=== PATIENT | female | born 1945 | race Caucasian/White ===

== ENCOUNTER → 2016-05-18 | Outpatient (CLI) | payer OTHER ==
[~2016-05-18] MED LIST: AMLO5TAB2 PO; BUDE3CAP6 PO; DULO30CA2 PO; EST0625T PO; LEV100T PO; LOP2C PO; NITR-48 PO; POTA20TA53 PO; Pantoprazole Sodium Sesquihydr PO
[2016-05-18 10:12] LABS: Basophils # (auto) 0 uL; Basophils % (auto) 0.4 % (0.0-2.0); Eosinophils # (auto) 0.3 uL; Eosinophils % (auto) 3.1 % (0.0-7.0); Hematocrit 45.6 % (36.0-46.0); Hemoglobin 14.2 g/dL (12.2-16.2); Lymphocytes # (auto) 2.7 uL; Mean Corpuscular Hemoglobin 29.2 pg (28.0-32.0); Mean Corpuscular Hgb Conc. 31.2 g/dL (32.0-36.0); Mean Corpuscular Volume 93.7 fL (80.0-100.0); Mean Platelet Volume 6.6 fL (7.4-10.4); Monocytes # (auto) 0.6 uL; Monocytes % (auto) 6.4 % (0.0-12.0); Neutrophils % (auto) 62.1 % (37.0-80.0); Platelet Count (auto) 671 10^3/uL (140-450); Red Cell Distribution Width 15.4 % (11.6-16.0); White Blood Cell 9.6 10^3/uL (4.4-10.8)
[2016-05-18 10:19] LABS: Urine Bilirubin Negative (Negative); Urine Color Yellow (Yellow); Urine Glucose Normal (Normal); Urine Ketone Negative (Negative); Urine Mucus FEW (None Seen); Urine RBC 8 /hpf (0 - 4); Urine Squamous Epithelial Cell FEW /hpf (<5); Urine Urobilinogen Normal (Negative)
[2016-05-18 10:25] LABS: Urine Blood 1+ /uL (Negative); Urine Nitrite POSITIVE (Negative)
[2016-05-18 10:29] LABS: Albumin 3.4 g/dL (3.4-5.0); BUN/Creatinine Ratio 15.8; Bilirubin, Total 0.4 mg/dL (0.2-1.0); Calcium 8.9 mg/dL (8.5-10.1); Potassium 3.3 mmol/L (3.5-5.1); Total Protein 6.9 g/dL (6.4-8.2)
== END | disposition home or self-care (01) ==
LOC: LAB 09:21
PROVIDERS: ATTEND Internal Medicine
DX: F33.9 Major depressive disorder, recurrent, unspecified (principal); I10 Essential (primary) hypertension; M15.8 Other polyosteoarthritis; G89.29 Other chronic pain
CPT/HCPCS: 36415; 80053; 80061; 81001; 82306; 83036; 84443; 85025

== ENCOUNTER → 2016-12-06 | Outpatient (CLI) | payer OTHER ==
[2016-12-06 11:33] LABS: Basophils # (auto) 0.2 uL; Basophils % (auto) 1.8 % (0.0-2.0); CONDITION Y; DEFINITIVE SEE PRINTOUT; Eosinophils # (auto) 0.3 uL; Eosinophils % (auto) 2.8 % (0.0-7.0); Hematocrit 44.7 % (36.0-46.0); Lymphocytes # (auto) 3.2 uL; Lymphocytes % (auto) 29.9 % (10.0-50.0); Mean Corpuscular Hemoglobin 31.1 pg (28.0-32.0); Mean Corpuscular Hgb Conc. 33.5 g/dL (32.0-36.0); Mean Corpuscular Volume 92.8 fL (80.0-100.0); Mean Platelet Volume 6.6 fL (7.4-10.4); Monocytes # (auto) 0.8 uL; Monocytes % (auto) 7.3 % (0.0-12.0); Neutrophils # (auto) 6.2 uL; Neutrophils % (auto) 58.2 % (37.0-80.0); Red Cell Distribution Width 15.7 % (11.6-16.0); White Blood Cell 10.7 10^3/uL (4.4-10.8)
[2016-12-06 11:43] LABS: BUN/Creatinine Ratio 12.5; Calcium 9.2 mg/dL (8.5-10.1); Potassium 3.4 mmol/L (3.5-5.1)
[2016-12-06 13:35] LABS: Platelet Count (auto) 815 10^3/uL (140-450)
== END | disposition home or self-care (01) ==
LOC: LAB 11:00
PROVIDERS: ATTEND Internal Medicine
DX: I10 Essential (primary) hypertension (principal); N39.0 Urinary tract infection, site not specified
CPT/HCPCS: 36415; 80048; 82607; 85025

== ENCOUNTER → 2017-06-20 | Outpatient (CLI) | payer OTHER ==
[2017-06-20 09:47] LABS: Basophils # (auto) 0.1 uL; Basophils % (auto) 1.3 % (0.0-2.0); Eosinophils # (auto) 0.4 uL; Eosinophils % (auto) 4.4 % (0.0-7.0); Hematocrit 44.9 % (36.0-46.0); Hemoglobin 14.8 g/dL (12.2-16.2); Lymphocytes # (auto) 2.3 uL; Lymphocytes % (auto) 25.1 % (10.0-50.0); Mean Corpuscular Hemoglobin 29.5 pg (28.0-32.0); Mean Corpuscular Hgb Conc. 32.9 g/dL (32.0-36.0); Mean Corpuscular Volume 89.8 fL (80.0-100.0); Monocytes # (auto) 0.6 uL; Monocytes % (auto) 6.5 % (0.0-12.0); Neutrophils # (auto) 5.8 uL; Neutrophils % (auto) 62.7 % (37.0-80.0); Red Cell Distribution Width 14.7 % (11.8-14.3); White Blood Cell 9.2 10^3/uL (4.4-10.8)
[2017-06-20 10:04] LABS: Platelet Count (auto) 793 10^3/uL (140-450)
[2017-06-20 10:08] LABS: Albumin 3.3 g/dL (3.4-5.0); BUN/Creatinine Ratio 14.5; Bilirubin, Total 0.3 mg/dL (0.2-1.0); Calcium 8.6 mg/dL (8.5-10.1); Potassium 3.4 mmol/L (3.5-5.1); Total Protein 7.1 g/dL (6.4-8.2)
== END | disposition home or self-care (01) ==
LOC: LAB 09:32
PROVIDERS: ATTEND Physician Assistant
DX: G47.00 Insomnia, unspecified (principal); E03.9 Hypothyroidism, unspecified; D47.3 Essential (hemorrhagic) thrombocythemia; K52.89 Other specified noninfective gastroenteritis and colitis; E53.8 Deficiency of other specified B group vitamins; I70.0 Atherosclerosis of aorta; Z86.39 Personal history of other endocrine, nutritional and metabolic disease
CPT/HCPCS: 36415; 80053; 80061; 84443; 85025

== ENCOUNTER → 2017-08-29 | Outpatient (CLI) | payer OTHER ==
[2017-08-29 08:48] LABS: Basophils # (auto) 0.1 uL; Hemoglobin 14.9 g/dL (12.2-16.2); Lymphocytes # (auto) 2.9 uL; White Blood Cell 10.5 10^3/uL (4.4-10.8)
[2017-08-29 08:49] LABS: Basophils % (auto) 1.3 % (0.0-2.0); Eosinophils # (auto) 1.4 uL; Eosinophils % (auto) 13.4 % (0.0-7.0); Hematocrit 44.6 % (36.0-46.0); Lymphocytes % (auto) 27.2 % (10.0-50.0); Mean Corpuscular Hemoglobin 29.9 pg (28.0-32.0); Mean Corpuscular Hgb Conc. 33.4 g/dL (32.0-36.0); Mean Corpuscular Volume 89.5 fL (80.0-100.0); Monocytes % (auto) 9.2 % (0.0-12.0); Neutrophils # (auto) 5.1 uL; Neutrophils % (auto) 48.9 % (37.0-80.0); Nucleated Red Blood Cells % 0.1 %; Platelet Count (auto) 715 10^3/uL (140-450); Red Blood Cells 4.98 10^6/uL (4.0-5.20); Red Cell Distribution Width 15.7 % (11.8-14.3)
[2017-08-29 09:07] LABS: Albumin 3.1 g/dL (3.4-5.0); Calcium 8.6 mg/dL (8.5-10.1); Potassium 3.5 mmol/L (3.5-5.1)
[2017-08-29 09:09] LABS: Urine Bacteria NONE SEEN /hpf (None Seen); Urine Blood TRACE /uL (Negative); Urine Mucus FEW (None Seen); Urine Specific Gravity 1.013 (1.001-1.035); Urine WBC 2 /hpf (0 - 5)
[2017-08-29 09:10] LABS: Bilirubin, Total 0.3 mg/dL (0.2-1.0); Total Protein 7.2 g/dL (6.4-8.2)
== END | disposition home or self-care (01) ==
LOC: LAB 08:33
PROVIDERS: ATTEND Physician Assistant
DX: Z01.818 Encounter for other preprocedural examination (principal); E03.9 Hypothyroidism, unspecified; I10 Essential (primary) hypertension; J44.9 Chronic obstructive pulmonary disease, unspecified
CPT/HCPCS: 36415; 80053; 81001; 85025

== ENCOUNTER 2018-02-12 08:16 | Day surgery (SDC) | payer OTHER ==
[2018-02-08 10:10] LABS: Basophils # (auto) 0.1 uL; Eosinophils # (auto) 0.3 uL; Hemoglobin 13.9 g/dL (12.2-16.2); Monocytes # (auto) 0.7 uL
[2018-02-08 10:13] LABS: Basophils % (auto) 0.8 % (0.0-2.0); Hematocrit 42.3 % (36.0-46.0); Lymphocytes # (auto) 2.7 uL; Lymphocytes % (auto) 30.4 % (10.0-50.0); Mean Corpuscular Hemoglobin 29.7 pg (28.0-32.0); Mean Corpuscular Hgb Conc. 32.9 g/dL (32.0-36.0); Mean Corpuscular Volume 90.5 fL (80.0-100.0); Monocytes % (auto) 8.2 % (0.0-12.0); Neutrophils # (auto) 5.1 uL; Neutrophils % (auto) 57.6 % (37.0-80.0); Red Blood Cells 4.68 10^6/uL (4.0-5.20); Red Cell Distribution Width 15.7 % (11.8-14.3); White Blood Cell 8.9 10^3/uL (4.4-10.8)
[2018-02-08 10:33] LABS: INR 0.97 (0.9-1.15); Partial Thromboplastin Time 28.7 sec (23.78-33.04); Prothrombin Time 10.4 sec (9.27-12.13)
[2018-02-08 10:50] LABS: Platelet Count (auto) 782 10^3/uL (140-450)
[~2018-02-12] VITALS: Ht 154.9 cm; Wt 45.4 kg
[~2018-02-12 08:16] MED LIST changes: +ALPR0.5T PO; +AMLO5TAB13 PO; -AMLO5TAB2 PO; +ASPI81TA27 PO; -BUDE3CAP6 PO; -LOP2C PO; -NITR-48 PO; +PRE5T PO; -Pantoprazole Sodium Sesquihydr PO
[2018-02-12] MEDS ORDERED: SODIUM CHLORIDE LOCK 10 ML ONE (09:01)
[2018-02-12] MEDS ORDERED: LIDOCAINE VISCOUS 2% 15ML UD ONE (09:01)
[2018-02-12] MEDS: MIDAZOLAM HCL 5 MG/ML-1ML VIAL ONE ×3 (09:27→09:33)
[2018-02-12] MEDS: fentaNYL CITRATE 100 MCG/2 ML VL ONE ×2 (09:27→09:30)
[2018-02-12 10:12] VITALS: BP 120/76
[2018-02-12] MEDS ORDERED: diphenhdrAMINE 50mg/ml (500mg/10ml VIAL) ONE (11:33)
== END 2018-02-12 10:22 | disposition home or self-care (01) ==
LOC: GI 08:16
PROVIDERS: ATTEND Internal Medicine Gastroenterology
DX: K29.50 Unspecified chronic gastritis without bleeding (principal); R13.10 Dysphagia, unspecified; F41.9 Anxiety disorder, unspecified; F32.9 Major depressive disorder, single episode, unspecified; H26.9 Unspecified cataract; F17.210 Nicotine dependence, cigarettes, uncomplicated; Z98.890 Other specified postprocedural states; Z79.899 Other long term (current) drug therapy; Z79.82 Long term (current) use of aspirin; Z84.89 Family history of other specified conditions
CPT/HCPCS: 36415; 43239; 43248; 85025; 85610; 85730; A6257; J1200; J2250; J3010; J7030

== ENCOUNTER → 2018-04-24 | Outpatient (CLI) | payer OTHER ==
[2018-04-24 11:34] LABS: Basophils # (auto) 0.1 uL; Eosinophils # (auto) 0.2 uL; Hemoglobin 14.8 g/dL (12.2-16.2); Lymphocytes # (auto) 2.4 uL; Monocytes # (auto) 0.6 uL; Neutrophils # (auto) 4.9 uL
[2018-04-24 11:36] LABS: Basophils % (auto) 1.2 % (0.0-2.0); Eosinophils % (auto) 2.3 % (0.0-7.0); Hematocrit 44.2 % (36.0-46.0); Lymphocytes % (auto) 29.1 % (10.0-50.0); Mean Corpuscular Hemoglobin 30.6 pg (28.0-32.0); Mean Corpuscular Hgb Conc. 33.6 g/dL (32.0-36.0); Neutrophils % (auto) 60.4 % (37.0-80.0); Red Blood Cells 4.85 10^6/uL (4.0-5.20); Red Cell Distribution Width 16.4 % (11.8-14.3); White Blood Cell 8.1 10^3/uL (4.4-10.8)
[2018-04-24 12:39] LABS: Platelet Count (auto) 675 10^3/uL (140-450)
[2018-04-24 13:49] LABS: Alanine Aminotransferase 13 U/L (13-56); Albumin 3.3 g/dL (3.4-5.0); Anion Gap 8 (5-15); Aspartate Aminotransferase 11 U/L (15-37); BUN/Creatinine Ratio 18.8; Blood Urea Nitrogen 12 mg/dL (7-18); Calcium 9.1 mg/dL (8.5-10.1); Carbon Dioxide 26 mmol/L (21-32); Chloride 104 mmol/L (98-107); GFR African American > 60 mL/min; GFR Non-African American > 60 mL/min; Glucose 93 mg/dL (74-106); Potassium 3.6 mmol/L (3.5-5.1); Sodium 138 mmol/L (136-145)
[2018-04-24 13:53] LABS: Alkaline Phosphatase 51 U/L (45-117); Bilirubin, Total 0.4 mg/dL (0.2-1.0); Cholesterol 297 mg/dL (< 200); HDL Cholesterol 127 mg/dL (40-59); LDL Cholesterol 144 mg/dL (< 100); Total Protein 6.9 g/dL (6.4-8.2); Triglycerides 181 mg/dL (< 150)
== END | disposition home or self-care (01) ==
LOC: LAB 11:09
PROVIDERS: ATTEND Physician Assistant
DX: K52.89 Other specified noninfective gastroenteritis and colitis (principal); E03.9 Hypothyroidism, unspecified; D47.3 Essential (hemorrhagic) thrombocythemia
CPT/HCPCS: 36415; 80053; 80061; 82306; 85025

== ENCOUNTER → 2018-10-30 | Outpatient (CLI) | payer OTHER ==
[~2018-10-30] MED LIST changes: -AMLO5TAB13 PO; +AMLO5TAB15 PO; +ASPI-404 PO; -ASPI81TA27 PO; +POTA-220 PO; -POTA20TA53 PO
[2018-10-30 11:35] LABS: Lymphocytes # (auto) 3.1 uL; Lymphocytes % (auto) 33.6 % (10.0-50.0); Monocytes # (auto) 0.7 uL
[2018-10-30 11:37] LABS: Basophils # (auto) 0.2 uL; Basophils % (auto) 1.7 % (0.0-2.0); Eosinophils # (auto) 0.3 uL; Eosinophils % (auto) 3.1 % (0.0-7.0); Hematocrit 42.1 % (36.0-46.0); Mean Corpuscular Hemoglobin 29.9 pg (28.0-32.0); Mean Corpuscular Hgb Conc. 33.4 g/dL (32.0-36.0); Mean Corpuscular Volume 89.5 fL (80.0-100.0); Monocytes % (auto) 7.4 % (0.0-12.0); Neutrophils % (auto) 54.2 % (37.0-80.0); Red Cell Distribution Width 15.6 % (11.8-14.3); White Blood Cell 9.3 10^3/uL (4.4-10.8)
[2018-10-30 11:57] LABS: Platelet Count (auto) 784 10^3/uL (140-450)
[2018-10-30 12:02] LABS: Albumin 3.2 g/dL (3.4-5.0); Calcium 8.5 mg/dL (8.5-10.1); Potassium 3.6 mmol/L (3.5-5.1)
[2018-10-30 12:17] LABS: BUN/Creatinine Ratio 12.3; Bilirubin, Total 0.7 mg/dL (0.2-1.0); Total Protein 6.7 g/dL (6.4-8.2)
== END | disposition home or self-care (01) ==
LOC: LAB 11:14
PROVIDERS: ATTEND Physician Assistant
DX: E03.9 Hypothyroidism, unspecified (principal); K21.9 Gastro-esophageal reflux disease without esophagitis; K52.89 Other specified noninfective gastroenteritis and colitis; D47.3 Essential (hemorrhagic) thrombocythemia
CPT/HCPCS: 36415; 80053; 80061; 84443; 85025

== ENCOUNTER 2019-01-15 12:32 | Emergency (ER) | payer OTHER ==
[~2019-01-15] VITALS: Ht 180.3 cm; Wt 47.2 kg
[2019-01-15] MEDS ORDERED: SODIUM CHLORIDE 0.9% 1,000 ML IV ONE (12:38)
[2019-01-15] MEDS ORDERED: ONDANSETRON HCL 4 MG/2 ML VIAL IV ONE ×2 (13:00→16:15)
[2019-01-15] MEDS ORDERED: MORPHINE SULF INJ 2 MG/ML SYRINGE 1ML IV ONE (13:00)
[2019-01-15 13:04] LABS: Basophils # (auto) 0.1 uL; Basophils % (auto) 0.8 % (0.0-2.0); Eosinophils # (auto) 0.2 uL; Eosinophils % (auto) 1.3 % (0.0-7.0); Hematocrit 39.9 % (36.0-46.0); Hemoglobin 12.8 g/dL (12.2-16.2); Lymphocytes # (auto) 1.9 uL; Lymphocytes % (auto) 11.6 % (10.0-50.0); Mean Corpuscular Hemoglobin 28.8 pg (28.0-32.0); Mean Corpuscular Volume 89.8 fL (80.0-100.0); Monocytes # (auto) 0.7 uL; Monocytes % (auto) 4.1 % (0.0-12.0); Neutrophils # (auto) 13.8 uL; Neutrophils % (auto) 82.2 % (37.0-80.0); Nucleated Red Blood Cells % 0.1 %; Platelet Count (auto) 362 10^3/uL (140-450); Red Blood Cells 4.44 10^6/uL (4.0-5.20); Red Cell Distribution Width 15.8 % (11.8-14.3); White Blood Cell 16.8 10^3/uL (4.4-10.8)
[2019-01-15 13:22] LABS: INR 1.12 (0.9-1.15); Partial Thromboplastin Time 26.2 sec (23.64-32.05)
[2019-01-15 13:24] LABS: Alanine Aminotransferase 14 U/L (13-56); Albumin 2.7 g/dL (3.4-5.0); Anion Gap 10 (5-15); Blood Urea Nitrogen 10 mg/dL (7-18); Calcium 7.5 mg/dL (8.5-10.1); Carbon Dioxide 21 mmol/L (21-32); Chloride 108 mmol/L (98-107); Glucose 170 mg/dL (74-106); Sodium 139 mmol/L (136-145)
[2019-01-15 13:29] LABS: Alkaline Phosphatase 41 U/L (45-117); Aspartate Aminotransferase 15 U/L (15-37); BUN/Creatinine Ratio 12.5; Bilirubin, Total 0.3 mg/dL (0.2-1.0); GFR African American 91 mL/min; GFR Non-African American 75 mL/min; Total Protein 5.8 g/dL (6.4-8.2)
[2019-01-15] MEDS ORDERED: IOHEXOL 350 MG/ML 100ML IJ ONE ×3 (13:30→14:07)
[2019-01-15 13:34] LABS: Potassium 2.8 mmol/L (3.5-5.1)
[2019-01-15] MEDS ORDERED: POTASSIUM EFFERVESENT TAB 25 MEQ PO ONE (15:15)
[2019-01-15] MEDS ORDERED: cefTRIAXone 1GM/50ML D5W 50 ML IV ONE (15:15)
[2019-01-15] MEDS ORDERED: POTASSIUM CHLORIDE 20 MEQ, LIDOCAINE 1% (LOCAL ANESTH.) 2 ML in SODIUM CHL 0.9% 100 ML IV ONE (15:15)
[2019-01-15 15:48] LABS: Urine Bacteria NONE SEEN /hpf (None Seen); Urine Blood 2+ /uL (Negative); Urine Mucus FEW (None Seen); Urine WBC 32 /hpf (0 - 5)
[2019-01-15 16:00] LABS: Alcohol, Urine < 3.0 mg/dL (0-5); Amphetamine Screen, Urine NEGATIVE (NEGATIVE); Barbiturate Scree,Urine NEGATIVE (NEGATIVE); Benzodiazephine Screen, Urine NEGATIVE (NEGATIVE); Cannabinoid Screen, Urine NEGATIVE (NEGATIVE); Cocaine Screen, Urine NEGATIVE (NEGATIVE); Opiate Scree,Urine NEGATIVE (NEGATIVE); Phencyclidine Screen, Urine NEGATIVE (NEGATIVE)
[2019-01-15] MEDS ORDERED: MORPHINE SULFATE 4 MG/ML SYR/VIAL IV ONE (16:15)
[2019-01-15 16:19] VITALS: BP 104/70
[2019-02-14] MEDS ORDERED: MET25T PO (13:32)
[2019-02-14] MEDS ORDERED: GABA300C10 PO (13:32)
[2019-02-14] MEDS ORDERED: ATOR20TA50 PO (13:32)
== END 2019-01-15 16:19 ==
LOC: EDBD 12:32 → ER 12:35
DX: S00.83XA Contusion of other part of head, initial encounter (principal); S09.90XA Unspecified injury of head, initial encounter; I71.03 Dissection of thoracoabdominal aorta; F17.210 Nicotine dependence, cigarettes, uncomplicated; I10 Essential (primary) hypertension; K21.9 Gastro-esophageal reflux disease without esophagitis; X58.XXXA Exposure to other specified factors, initial encounter; Y93.89 Activity, other specified; Y99.8 Other external cause status; Y92.89 Other specified places as the place of occurrence of the external cause
CPT/HCPCS: 36415; 36556; 70450; 70486; 71045; 71275; 72125; 75635; 80053; 80307; 80320; 81001; 84484; 85025; 85610; 85730; 86850; 86900; 86901; 86920; 96361; 96365; 96375; 96376; 99291; J0696; J2001; J2270; J2405; J3480; Q9967; 93005

== ENCOUNTER 2019-02-07 18:41 | Inpatient (IN) | payer OTHER ==
[~2019-02-07] VITALS: Ht 152.4 cm; Wt 43.6 kg
--- NOTE | 2019-02-07 18:30 | NUR ---
Admit to [facility] CARLOS BOWIE admitted to [facility] @ 1810 from [facility] via jesus on security monitor, received report from [facility] RN Liliana @ 2574 this afternoon . Patient transfered to bed, connected to unit monitoring and weighed by bedscale. Patient awake and alert. No S/S of SOB or pain noted. Patient saturation 95% at room air. See interventions for complete assessment. Patient oriented to Anaya hicks RN, unit, room, bed, and unit policies regarding patient care and visiting hours. All questions and concerns addressed, patient verbalized understanding. Bed locked on low position, side rails up x2, bed alarms on at all times, call nguyen within reach, instructed to call for needed assistance. Will continue to monitor.
--- NOTE | 2019-02-07 18:40 | NUR ---
Dr Callaway at bedside, updated on patient's status. Medication administered report and instructions on wound care given to Dr Callaway. Patient seen and examined. Will carry out new orders.
[2019-02-07 19:00] VITALS: BP 111/61
[2019-02-07] MEDS ORDERED: NITROGLYCERIN 0.4 MG SL TAB SL PRN (19:00)
[2019-02-07] MEDS ORDERED: TEMAZEPAM 15 MG CAP PO PRN (19:00)
[2019-02-07] MEDS ORDERED: MORPHINE SULF INJ 2 MG/ML SYRINGE 1ML IV PRN (19:00)
[2019-02-07] MEDS ORDERED: MILK OF MAGNESIA 30ML SUSP PO PRN (19:00)
[2019-02-07] MEDS ORDERED: PROMETHAZINE HCL 25 MG/ML 1ML IV PRN (19:00)
[2019-02-07] MEDS ORDERED: LACTULOSE 20Gm/30ML SOLN PO PRN (19:00)
--- NOTE | 2019-02-07 19:15 | NUR ---
Patient's Norris at bedside, updated on patient's status and POC, verbalized understanding. All questions and concerns addressed. Hospital Discharge Instructions from [facility] given to Norris.
--- NOTE | 2019-02-07 19:45 | NUR ---
Opening Shift Note Assumed care of patient, awake and alert. No S/S of distress/SOB, c/o bilateral lower extremity pain, will medicate per orders.Instructed on POC, all questions and concerns addressed with Norris at bedside. Per dressing to lower extremities were changed by plastic surgeons only at [facility] and were just changed prior to transfer. Dae drain to left lower extremity noted with dark serous output. See interventions for complete assessment. Call light given to patient and instructed to call PRN.
[2019-02-07 20:00] VITALS: BP 124/63
--- NOTE | 2019-02-07 20:00 | NUR ---
MRSA swab sent to lab
[2019-02-07] MEDS: HYDROcodone-ACET 5/325MG TAB PO PRN (20:05)
[2019-02-07] MEDS: SILVER SULFADIAZINE 1 % TOPICAL CREAM 50GM TOP SCH (21:17)
[2019-02-07] MEDS: METOPROLOL TARTRATE 25 MG TAB PO SCH (21:47)
[2019-02-07] MEDS: GABAPENTIN 300 MG CAP PO SCH (21:47)
[2019-02-07] MEDS: ENOXAPARIN SOD 60 MG/0.6 ML SYRINGE SC SCH (21:48)
[2019-02-07] MEDS: MUPIROCIN 2% OINT 15gm or 22gm TOP SCH (22:00)
[2019-02-07] MEDS: SENNA 8.6 MG TAB PO SCH (22:00)
[2019-02-08] VITALS: BP 124/57
[2019-02-08] MEDS: MORPHINE SULFATE 4 MG/ML SYR/VIAL IV PRN ×5 (00:18→22:10)
[2019-02-08] MEDS: HYDROcodone-ACET 5/325MG TAB PO PRN (03:50)
[2019-02-08 04:00] VITALS: BP 118/60
[2019-02-08 04:53] LABS: Basophils # (auto) 0.1 uL; Eosinophils # (auto) 0.1 uL; Lymphocytes # (auto) 2.3 uL; Nucleated Red Blood Cells % 0.1 %
[2019-02-08 04:55] LABS: Basophils % (auto) 0.6 % (0.0-2.0); Eosinophils % (auto) 1.3 % (0.0-7.0); Hematocrit 31.4 % (36.0-46.0); Hemoglobin 10.2 g/dL (12.2-16.2); Mean Corpuscular Hemoglobin 29.4 pg (28.0-32.0); Mean Corpuscular Hgb Conc. 32.5 g/dL (32.0-36.0); Mean Corpuscular Volume 90.5 fL (80.0-100.0); Monocytes # (auto) 0.8 uL; Monocytes % (auto) 7.4 % (0.0-12.0); Neutrophils # (auto) 6.9 uL; Neutrophils % (auto) 67.7 % (37.0-80.0); Red Blood Cells 3.47 10^6/uL (4.0-5.20); White Blood Cell 10.2 10^3/uL (4.4-10.8)
[2019-02-08 05:00] LABS: Platelet Count (auto) 855 10^3/uL (140-450)
[2019-02-08 05:12] LABS: Albumin 2.4 g/dL (3.4-5.0); Calcium 8.7 mg/dL (8.5-10.1); Potassium 3.5 mmol/L (3.5-5.1)
[2019-02-08 05:17] LABS: BUN/Creatinine Ratio 12.7; Bilirubin, Total 0.5 mg/dL (0.2-1.0); Total Protein 6.2 g/dL (6.4-8.2)
--- NOTE | 2019-02-08 06:30 | NUR ---
AM CARE COMPLETE BED BATH PROVIDED USIN CHG WIPES. PARTIAL LINEN CHANGE DONE AND NEW GOWN PLACED ON PT. REPOSITIONED IN BED FOR COMFORT. CALL LIGHT GIVEN TO PT.
[2019-02-08] MEDS: LEVOTHYROXINE SODIUM 100 MCG TAB PO SCH (06:31)
[2019-02-08] MEDS: GABAPENTIN 300 MG CAP PO SCH ×3 (06:31→22:16)
[2019-02-08 08:00] VITALS: BP 115/63
--- NOTE | 2019-02-08 08:00 | NUR ---
Opening Shift Note Assumed care of patient, awake and alert. Patient A&Ox4. Patient on the monitor. Patient on room air saturation 96%. IV right forearm 20G saline locked patent, clean, dry, and intact. Right and left leg wound dressings clean, dry, and intact. Left leg ARNAUD drain to suction no drainage noted. No S/S of distress/SOB or pain. Instructed on POC and to call for assist. Bed locked and in the lowest position, side rails x2, call light with in reach. Will continue to monitor.
--- NOTE | 2019-02-08 08:30 | NUR ---
Patient sitting up in bed eating breakfast independently. Will continue to monitor.
[2019-02-08] MEDS ORDERED: AMLO5TAB15 PO (09:17)
[2019-02-08] MEDS ORDERED: PANT40TA2 PO (09:17)
[2019-02-08] MEDS ORDERED: PRE1T PO (09:19)
--- NOTE | 2019-02-08 10:00 | NUR ---
Medication dosages, usages, and side effects explained to patient. Patient verbalized understanding. Will continue to monitor.
[2019-02-08] MEDS: NICOTINE 14 MG/24HR TOPICAL PATCH TD SCH (10:27)
[2019-02-08] MEDS: PANTOPRAZOLE 40 MG TAB PO SCH (10:29)
[2019-02-08] MEDS: amLODIPine BESYLATE 5 MG TAB PO SCH (10:29)
[2019-02-08] MEDS: METOPROLOL TARTRATE 25 MG TAB PO SCH ×2 (10:29→22:16)
[2019-02-08] MEDS: predniSONE 5 MG TAB PO SCH (10:29)
[2019-02-08] MEDS: ASPirin 81 mg TAB PO SCH (10:29)
[2019-02-08] MEDS: ENOXAPARIN SOD 60 MG/0.6 ML SYRINGE SC SCH ×2 (10:30→22:17)
[2019-02-08] MEDS: MUPIROCIN 2% OINT 15gm or 22gm TOP SCH ×2 (10:30→22:17)
[2019-02-08] MEDS: SILVER SULFADIAZINE 1 % TOPICAL CREAM 50GM TOP SCH ×2 (10:30→22:17)
[2019-02-08 12:00] VITALS: BP 102/54
--- NOTE | 2019-02-08 12:30 | NUR ---
Patient sitting up in bed eating breakfast independently. Will continue to monitor. Addendum: 02/08/19 at 1329 by Fabiana Paris RN Lunch not Breakfast
--- NOTE | 2019-02-08 13:58 | NUR ---
WOUND CARE NOTE: Wound care in to see patient per wound care request regarding wounds that are noted present on admission. Patient is 73 y/o female with admitting diagnosis of Repair of Abd Aortic Aneurysm. Patient with history of htn,hypothyroidism, chronic diarrhea, colitis, MILA. Patient is from [facility] s/p thoracic aortic dissection, she also s/p Rt and Lt leg fasciotomy. Patient is resting in SDU bed in Rm. 264. Patient is awake,alert and oriented. She's able to assist in turning and repositioning. Her Jamar score is 16. Patient is medicated for pain by her bedside nurse prior wound assessment. Skin/wound assessment done with assistance of patient's nurse, MALLIKA Jung. Patient came in with wound care instruction from [facility] surgeon/wound care. MD order to continue [facility] wound care instructions. Patient's Lt medial lower leg has 18x5cm clean, dry wound s/p skin graft application, cleansed with wound cleanser, patted dry with gauze and covered with Xeroform with bacitracin dressing. Lt lateral lower leg wound measuring 18cm is clean and dry and closed with surgical glue, cleansed with wound cleanser, patted dry with sterile gauze and covered with non-adherent dressing. Lt leg wound covered with JONATHAN wrap dressing. ARNAUD drain to distal Lt lower leg wound is intact with minimal serosanguineous drainage. Lt lateral thigh wound (skin graft donor site) measuring 19x7cm, red wound bed, pink elkin wound, no drainage/odor noted noted. Cleansed with wound cleanser, patted dry with sterile gauze and covered with Large Opti foam dressing. Patient's Rt medial lower leg (12cm) and Rt lateral lower leg (11cm) has, clean, dry, well approximated sutured incision. MALLIKA Jenkins at bedside cleaning RLE wounds and to cover with clean, dry sterile dressing per MD order. Photographs of mentioned wounds are taken for reference. Patient tolerated well. Patient and family education given regarding wound care, wound healing, verbalized understanding. RECOMMENDATION: Daily/PRN dressing change to Lt leg wound, Q5days/PRN dressing change to Lt thigh skin graft donor site per MD order, Dietary consult, frequent turning and repositioning schedule as condition permits, redistribute pressure points with pillows,elevate heels on pillows, continue monitoring by wound care while patient is hospitalized. Addendum: 02/08/19 at 1655 by Celeste Stafford RN Amended: Links added.
--- NOTE | 2019-02-08 15:00 | NUR ---
Dr. Beckwith at bedside. Ok to Downgrade to Tele and new order for PT eval. Will continue to monitor.
[2019-02-08 16:00] VITALS: BP 105/58
--- NOTE | 2019-02-08 16:45 | NUR ---
Patient resting at this time. No S/S of pain SOB or distress. Will continue to monitor.
--- NOTE | 2019-02-08 18:15 | NUR ---
report received from [facility] MALLIKA Jung.
--- NOTE | 2019-02-08 18:41 | NUR ---
Telemetry admit from [facility] JAMIRCARLOS Moreno admitted to Telemetry unit after SBAR received. Patient oriented to Radha Varela, primary RN, unit, room, bed, and unit policies regarding patient care and visiting hours. Patient now on continuous telemetry monitoring, tele box #60 and telemetry reading on arrival to unit is . Patient placed on bedside oxygen, weighed by bedscale and encouraged to call if they need something. All questions and concerns addressed, patient verbalized understanding. Note:
--- NOTE | 2019-02-08 19:36 | NUR ---
Opening Shift Note Assumed care of patient, awake and alert x 4. No S/S of distress/SOB. Bed is in lowest position and locked. Call light within reach. Board updated. Tele box number matches monitor and leads are in correct placement. Instructed on POC and to call for assist PRN, will continue to monitor for changes Q1hr and PRN.
[2019-02-08 22:00] VITALS: BP 104/60
[2019-02-08] MEDS: SENNA 8.6 MG TAB PO SCH (22:14)
--- NOTE | 2019-02-08 22:42 | NUR ---
Wound care performed per MD order to right and left lower leg incision sites. Time, date, and initials placed on all new dressings. Patient tolerated well.
[2019-02-09] MEDS: MORPHINE SULFATE 4 MG/ML SYR/VIAL IV PRN ×5 (02:33→22:16)
[2019-02-09 05:00] VITALS: BP 96/63
[2019-02-09 05:28] LABS: Basophils # (auto) 0.1 uL; Mean Corpuscular Volume 90.2 fL (80.0-100.0)
[2019-02-09 05:33] LABS: Basophils % (auto) 0.6 % (0.0-2.0); Eosinophils # (auto) 0.1 uL; Eosinophils % (auto) 1.5 % (0.0-7.0); Hematocrit 29.1 % (36.0-46.0); Hemoglobin 9.8 g/dL (12.2-16.2); Lymphocytes % (auto) 19.9 % (10.0-50.0); Mean Corpuscular Hemoglobin 30.3 pg (28.0-32.0); Mean Corpuscular Hgb Conc. 33.6 g/dL (32.0-36.0); Monocytes # (auto) 0.8 uL; Monocytes % (auto) 7.7 % (0.0-12.0); Neutrophils # (auto) 7.1 uL; Neutrophils % (auto) 70.3 % (37.0-80.0); Nucleated Red Blood Cells % 0.2 %; Red Blood Cells 3.23 10^6/uL (4.0-5.20); Red Cell Distribution Width 18.8 % (11.8-14.3); White Blood Cell 10.1 10^3/uL (4.4-10.8)
[2019-02-09 05:39] LABS: Platelet Count (auto) 756 10^3/uL (140-450)
[2019-02-09 05:49] LABS: Potassium 3.3 mmol/L (3.5-5.1)
[2019-02-09 05:55] LABS: BUN/Creatinine Ratio 20.5; Calcium 8.4 mg/dL (8.5-10.1); Magnesium 2.3 mg/dL (1.6-2.6)
[2019-02-09] MEDS: GABAPENTIN 300 MG CAP PO SCH ×3 (06:32→22:19)
[2019-02-09] MEDS: LEVOTHYROXINE SODIUM 100 MCG TAB PO SCH (06:33)
--- NOTE | 2019-02-09 08:00 | NUR ---
OPENING SHIFT NOTE: PATIENT AWAKE, ALERT AND ORIENTED X4. FALL PRECAUTIONS IN PLACE, PATIENT DENIES ANY PAIN AT THIS TIME. EDUCATED ON PAIN MANAGEMENT SCHEDULE. CALL LIGHT PLACED WITHIN REACH, PATIENT VERBALIZED UNDERSTANDING. WILL CONTINUE TO MONITOR,
[2019-02-09 09:00] VITALS: BP 107/66
[2019-02-09] MEDS: SILVER SULFADIAZINE 1 % TOPICAL CREAM 50GM TOP SCH ×2 (10:00→22:00)
[2019-02-09] MEDS: ENOXAPARIN SOD 60 MG/0.6 ML SYRINGE SC SCH ×2 (11:43→22:20)
[2019-02-09] MEDS: amLODIPine BESYLATE 5 MG TAB PO SCH (11:44)
[2019-02-09] MEDS: predniSONE 5 MG TAB PO SCH (11:45)
[2019-02-09] MEDS: PANTOPRAZOLE 40 MG TAB PO SCH (11:45)
[2019-02-09] MEDS: ASPirin 81 mg TAB PO SCH (11:45)
[2019-02-09] MEDS: NICOTINE 14 MG/24HR TOPICAL PATCH TD SCH (11:45)
[2019-02-09] MEDS: METOPROLOL TARTRATE 25 MG TAB PO SCH ×3 (11:45→22:16)
[2019-02-09 13:00] VITALS: BP 116/63
--- NOTE | 2019-02-09 14:10 | NUR ---
REPORT GIVEN TO JESENIA TENA. CARE ENDORSED, INFORMED OF WOUND CARE SUPPLIES AND SCHEDULING, PAIN MANAGEMENT/PATIENT PREFERENCES. PATIENT SITTING UP IN CHAIR AT THIS TIME. NO SIGNS OF DISTRESS NOTED.
--- NOTE | 2019-02-09 14:15 | NUR ---
Received report from RN, Farrah Walters, patient in chair in her room doing exercises with physical therapy. Patient has call light within reach and is also bedside. Aware of patient preferences to control pain. Will continue to monitor.
--- NOTE | 2019-02-09 14:49 | NUR ---
Pt was issued yellow TB for strengthening exercises for bilat UE's and hip exercises while sitting up in chair. Pt is able to weightbear on RLE and using hoping technique to transfer from bed to chair and vice versa Addendum: 02/09/19 at 1507 by Ankita Hernandez PT Amended: Links added.
[2019-02-09] MEDS: HYDROcodone-ACET 5/325MG TAB PO PRN (15:49)
--- NOTE | 2019-02-09 16:20 | NUR ---
Dressing change Performed dressing change and wound care to patients left lower leg, cleansed with NS, patted dry with gauze and covered with Xeroform with bacitracin dressing. Leg wound covered with JONATHAN wrap dressing. ARNAUD drain to distal Lt lower leg wound is intact with 10 ml serosanguineous drainage. Patient tolerated dressing change with no complaints of pain.
--- NOTE | 2019-02-09 16:25 | NUR ---
Dr. Mendosa bedside with patient and patients discussing plan of care.
[2019-02-09] MEDS: MUPIROCIN 2% OINT 15gm or 22gm TOP SCH ×2 (16:34→22:00)
[2019-02-09] MEDS ORDERED: POTASSIUM CHL 20 Meq TABLET PO ONE (16:45)
[2019-02-09 17:00] VITALS: BP 89/54
--- NOTE | 2019-02-09 19:18 | NUR ---
RECEIVED PATIENT FROM DAY SHIFT RN. PATIENT RESTING IN BED. NO S/S OF DISTRESS NOTED. DENIED PAIN FOR NOW AFTER PAIN MEDICATION GIVEN EARLIER. DRESSING ON BL LOWER LEGS AND RIGHT THIGH C/D/I. POC INSTRUCTED AND ENCOURAGED PATIENT TO CALL FOR VENEER MATCHER IF NEEDED. BED IN LOWEST POSITION WITH SIDE RAILS UP X 2. CALL JC WITHIN REACH. ALARM ON. CONTINUE TO MONITOR FOR CHANGES Q1H AND PRN.
[2019-02-09 21:48] VITALS: BP 103/64
[2019-02-09] MEDS: SENNA 8.6 MG TAB PO SCH (22:00)
--- NOTE | 2019-02-09 22:20 | NUR ---
PATIENT C/O PAIN @ 09/10, MEDICATED PATIENT ORDERED. CONTINUE TO MONITOR.
--- NOTE | 2019-02-09 22:39 | NUR ---
PATIENT'S ALL DRESSINGS C/D/I ON BOTH LEGS. ORDERED TO CHANGE DRESSING DAILY AND PRN. NO DRESSING CHANGE AT THIS TIME. CREAM HELD WELL. CONTINUE TO MONITOR.
--- NOTE | 2019-02-10 00:51 | NUR ---
PATIENT SLEEPING. NO S/S OF DISTRESS NOTED. CONTINUE CARE.
[2019-02-10] MEDS: MORPHINE SULFATE 4 MG/ML SYR/VIAL IV PRN ×5 (02:14→19:40)
--- NOTE | 2019-02-10 02:19 | NUR ---
PATIENT C/O PAIN @ 5/10, BP 117/58, HR 87. MEDICATED PATIENT ORDERED. CONTINUE TO MONITOR.
[2019-02-10 05:02] VITALS: BP 116/68
[2019-02-10 05:21] LABS: Basophils % (auto) 0.6 % (0.0-2.0); Eosinophils # (auto) 0.2 uL
[2019-02-10 05:33] LABS: Basophils # (auto) 0.1 uL; Eosinophils % (auto) 2.1 % (0.0-7.0); Hematocrit 30.7 % (36.0-46.0); Hemoglobin 9.8 g/dL (12.2-16.2); Lymphocytes # (auto) 1.9 uL; Lymphocytes % (auto) 21.2 % (10.0-50.0); Mean Corpuscular Hemoglobin 28.9 pg (28.0-32.0); Mean Corpuscular Hgb Conc. 31.9 g/dL (32.0-36.0); Mean Corpuscular Volume 90.6 fL (80.0-100.0); Monocytes # (auto) 0.8 uL; Monocytes % (auto) 8.9 % (0.0-12.0); Neutrophils % (auto) 67.2 % (37.0-80.0); Nucleated Red Blood Cells % 0.2 %; Red Blood Cells 3.39 10^6/uL (4.0-5.20); Red Cell Distribution Width 18.4 % (11.8-14.3)
[2019-02-10 05:38] LABS: INR 1.12 (0.9-1.15); Partial Thromboplastin Time 33.7 sec (23.64-32.05)
[2019-02-10 05:49] LABS: Potassium 3.8 mmol/L (3.5-5.1)
[2019-02-10 05:54] LABS: Albumin 2.3 g/dL (3.4-5.0); BUN/Creatinine Ratio 20.4; Bilirubin, Total 0.4 mg/dL (0.2-1.0); Calcium 8.4 mg/dL (8.5-10.1); Magnesium 2.2 mg/dL (1.6-2.6); Phosphorus 3.2 mg/dL (2.5-4.90); Total Protein 6.2 g/dL (6.4-8.2)
[2019-02-10 06:02] LABS: Platelet Count (auto) 823 10^3/uL (140-450)
[2019-02-10] MEDS: GABAPENTIN 300 MG CAP PO SCH ×3 (06:19→22:18)
[2019-02-10] MEDS: LEVOTHYROXINE SODIUM 100 MCG TAB PO SCH (06:19)
--- NOTE | 2019-02-10 06:24 | NUR ---
PATIENT C/O PAIN @ 10/10, MEDICATED PATIENT ORDERED. CONTINUE TO MONITOR.
--- NOTE | 2019-02-10 06:24 | NUR ---
CRITICAL LAB RESULT PLT 823 BY MD DUNCAN AWARE OF PATIENT'S CRITICAL RESULT YESTERDAY ABOUT 855. WILL PASS IT TO DAY SHIFT RN. TO DAY SHIFT MD FOR FURTHER TREATMENT. CONTINUE TO MONITOR.
--- NOTE | 2019-02-10 07:30 | NUR ---
Opening Shift Note Assumed care of patient, awake and alert, sitting up in bed eating breakfast. No S/S of distress/SOB or pain. Instructed on POC and to call for assist PRN, call light within reach and bed in locked and lowest position. Will continue to monitor for changes Q1hr and PRN.
[2019-02-10 09:00] VITALS: BP 113/67
[2019-02-10] MEDS: predniSONE 5 MG TAB PO SCH (09:37)
[2019-02-10] MEDS: PANTOPRAZOLE 40 MG TAB PO SCH (09:37)
[2019-02-10] MEDS: ASPirin 81 mg TAB PO SCH (09:37)
[2019-02-10] MEDS: POTASSIUM CHL 20 Meq TABLET PO SCH (09:38)
[2019-02-10] MEDS: NICOTINE 14 MG/24HR TOPICAL PATCH TD SCH (09:38)
[2019-02-10] MEDS: METOPROLOL TARTRATE 25 MG TAB PO SCH ×2 (09:42→22:00)
[2019-02-10] MEDS: amLODIPine BESYLATE 5 MG TAB PO SCH (09:42)
[2019-02-10] MEDS ORDERED: ENOXAPARIN SOD 40 MG/0.4 ML SYRINGE SC SCH ×2 (10:00→14:15)
[2019-02-10 12:34] VITALS: BP 100/55
--- NOTE | 2019-02-10 14:00 | NUR ---
Dr. Mendosa on unit
[2019-02-10 16:20] VITALS: BP 143/95
--- NOTE | 2019-02-10 16:30 | NUR ---
Dressing change Performed dressing change and wound care to patients left lower leg, cleansed with wound still cleaner tube, patted dry with gauze and covered with Xeroform with bacitracin dressing. Leg wound covered with JONATHAN wrap dressing. ARNAUD drain to distal Lt lower leg wound is intact with 5 ml serosanguineous drainage. No odor noted. Patient tolerated dressing change with no complaints of pain.
[2019-02-10] MEDS: MUPIROCIN 2% OINT 15gm or 22gm TOP SCH ×2 (16:41→22:00)
[2019-02-10] MEDS: SILVER SULFADIAZINE 1 % TOPICAL CREAM 50GM TOP SCH ×2 (16:42→22:00)
--- NOTE | 2019-02-10 19:20 | NUR ---
Opening Shift Note Assumed care of patient, awake and alert. No signs of distress noted, patient reports bilateral leg pain 09/10, see eMAR. Instructed on POC and to call for assist PRN. Bed in lowest locked position, call light within reach, side rails up x2, fall precautions in place. Will continue to monitor for changes Q1hr and PRN. Signed: 02/11/19 at 0026 by NOHEMI PRINCE <Co-Signature Required> Co-Signed: 02/11/19 at 0026 by BEATRICE GOODMAN OCA, RN
[2019-02-10 22:00] VITALS: BP 103/73
[2019-02-10] MEDS: SENNA 8.6 MG TAB PO SCH (22:00)
[2019-02-10] MEDS: ENOXAPARIN SOD 40 MG/0.4 ML SYRINGE SC SCH (22:18)
--- NOTE | 2019-02-10 22:20 | NUR ---
Dressing Silvadine and Bactroban cream held at this time for dressing change, as dressing change was already done earlier today at approximately 1630 to lower extremities. Will continue care.
[2019-02-11] MEDS: MORPHINE SULFATE 4 MG/ML SYR/VIAL IV PRN ×3 (00:07→09:32)
[2019-02-11 04:59] LABS: Eosinophils # (auto) 0.2 uL; Lymphocytes # (auto) 1.8 uL; Monocytes # (auto) 0.6 uL; White Blood Cell 7.6 10^3/uL (4.4-10.8)
[2019-02-11 05:00] VITALS: BP 125/75
[2019-02-11 05:01] LABS: Basophils # (auto) 0 uL; Basophils % (auto) 0.6 % (0.0-2.0); Eosinophils % (auto) 2.4 % (0.0-7.0); Lymphocytes % (auto) 24.3 % (10.0-50.0); Mean Corpuscular Hemoglobin 29.3 pg (28.0-32.0); Mean Corpuscular Hgb Conc. 32.3 g/dL (32.0-36.0); Mean Corpuscular Volume 90.9 fL (80.0-100.0); Monocytes % (auto) 7.8 % (0.0-12.0); Neutrophils # (auto) 4.9 uL; Neutrophils % (auto) 64.9 % (37.0-80.0); Nucleated Red Blood Cells % 0.1 %; Red Blood Cells 3.41 10^6/uL (4.0-5.20); Red Cell Distribution Width 18.8 % (11.8-14.3)
[2019-02-11 05:06] LABS: Platelet Count (auto) 836 10^3/uL (140-450)
--- NOTE | 2019-02-11 05:07 | NUR ---
Critical Lab Plt of 836. Md already aware. Will continue care.
[2019-02-11 05:21] LABS: Albumin 2.4 g/dL (3.4-5.0); Calcium 8.7 mg/dL (8.5-10.1); Magnesium 2.2 mg/dL (1.6-2.6); Potassium 3.6 mmol/L (3.5-5.1)
[2019-02-11 05:24] LABS: Bilirubin, Total 0.6 mg/dL (0.2-1.0); Phosphorus 3.3 mg/dL (2.5-4.90); Total Protein 6.2 g/dL (6.4-8.2)
[2019-02-11] MEDS: LEVOTHYROXINE SODIUM 100 MCG TAB PO SCH (06:26)
[2019-02-11] MEDS: GABAPENTIN 300 MG CAP PO SCH ×3 (06:26→22:51)
--- NOTE | 2019-02-11 08:00 | NUR ---
Morning note patient resting in bed with even and unlabored respirations, no distress noted. Instructed patient on POC, fall precautions and to call for assistance as needed. Patient verbalized understanding. Fall precautions in place with call light within reach. Will continue to monitor q1hr & PRN.
[2019-02-11 08:49] VITALS: BP 101/65
--- NOTE | 2019-02-11 09:26 | NUR ---
Patient ambulating with PT hotel assistant general manager FWW used as assistive device. Gait unsteady. Non-weight bearing to the LLE. Patient c/o dizziness and nausea. Patient returned to bed with assistance of CHARMAINE Powell. Pain rated 8/10 located in the LLE. Will medicate patient per MD order. Bed alarm on for safety.
[2019-02-11] MEDS: ENOXAPARIN SOD 40 MG/0.4 ML SYRINGE SC SCH ×2 (09:35→22:51)
[2019-02-11] MEDS: PANTOPRAZOLE 40 MG TAB PO SCH (09:37)
[2019-02-11] MEDS: predniSONE 5 MG TAB PO SCH (09:38)
[2019-02-11] MEDS: ASPirin 81 mg TAB PO SCH (09:38)
[2019-02-11] MEDS: amLODIPine BESYLATE 5 MG TAB PO SCH (09:40)
[2019-02-11] MEDS: NICOTINE 14 MG/24HR TOPICAL PATCH TD SCH (09:41)
[2019-02-11] MEDS: METOPROLOL TARTRATE 25 MG TAB PO SCH ×2 (09:44→22:00)
[2019-02-11] MEDS: POTASSIUM CHL 20 Meq TABLET PO SCH (09:44)
[2019-02-11] MEDS: SILVER SULFADIAZINE 1 % TOPICAL CREAM 50GM TOP SCH ×2 (10:00→22:00)
[2019-02-11] MEDS: MUPIROCIN 2% OINT 15gm or 22gm TOP SCH ×2 (10:00→22:52)
--- NOTE | 2019-02-11 11:46 | NUR ---
NUTRITION CONSULT/ASSESSMENT NOTES Please refer to link notes of nutrition screen form filed under the intervention section of the plan of care for further details. Est. Needs: 1300 kcal to 1550 kcal (30-35 kcal/kgBW), 44 gms to 57 gms pro (1.0-1.3 gms/kgBW d/t severe hypoalbuminemia). Will continue to monitor pertinent labs and reassess nutrient need prn Thank you for this consult. Addendum: 02/11/19 at [address] Amended: Links added.
[2019-02-11] MEDS: HYDROcodone-ACET 5/325MG TAB PO PRN ×3 (12:25→20:26)
[2019-02-11 12:44] VITALS: BP 94/62
--- NOTE | 2019-02-11 14:12 | NUR ---
POC discussed with POC discussed with Dr. Beckwith. to place orders.
--- NOTE | 2019-02-11 15:43 | NUR ---
RE: pain management Updated Dr. Beckwith on pain management and PRN orders. Order received and read back to verify.
[2019-02-11 16:03] LABS: INR 1.06 (0.9-1.15)
--- NOTE | 2019-02-11 16:26 | NUR ---
Assessment and SS consult Pt is a 73 yr old alert and oriented female. SS consult given for d/c planning. Pt lives at home with , Norris, who is her emergency contact and his # is on file. Prior to admit, pt was ambulatory, functioned independent with ADL's, cooking and cleaning. Pt stated that she had an aortic tear and was airlifted to [facility] and was there for 26 days and had 5 surgeries. Pt and her both receives income. pt is uninterested in advanced directives. Pt currently has wound vac on her left leg and stated that it is non-weight bearing currently. Pt would benefit from going to a SNF or receiving home health for rehab including PT for strength and wound care. Pt would also benefit from receiving a w/c to assist with ambulation in the home. Pt's nurse verbalized that Pt's is willing to learn how to provide transfer assistance for the pt in the home. Pt can transport the pt home if that is the future destination. Further needs will be assessed closer to d/c. Addendum: 02/11/19 at 1636 by JOSE RAMON PATEL Amended: Links added.
[2019-02-11 17:00] VITALS: BP 105/65
--- NOTE | 2019-02-11 18:13 | NUR ---
Wound care performed per MD order Patient tolerated well. Pain rated 3/10, primarily in the LLE. Patient medicated prior to dressing change per MD order. Incision to the Lateral LLE has mild redness with one large fluid filled blister at the proximal aspect of the incision. Mild amount of serosanguineous drainage. No odor. Skin graft site to the medial LLE has no redness and/or drainage noted. No odor. Incision to the lateral RLE is well approximated with no drainage and/or redness noted. Incision to the medial RLE is well approximated with no drainage and/or redness noted. Patient's spouse at bedside. Bed returned to lowest locked position with x2 side rails up and call light within reach. Will continue to monitor q1hr & PRN. Addendum: 02/11/19 at 1832 by Nellie Lizama RN Silvadene non-administered. MD order did not specify administration site.
[2019-02-11] MEDS: Ensure Enlive Strawberry 8oz Bottle PO SCH (18:27)
[2019-02-11] MEDS ORDERED: WARFARIN SODIUM 5 MG TAB PO ONE (18:30)
--- NOTE | 2019-02-11 18:43 | NUR ---
Closing note patient resting in bed with even and unlabored respirations, no distress noted. Fall precautions in place with call light within reach.
--- NOTE | 2019-02-11 19:30 | NUR ---
Care endorsed to MALLIKA Rodriguez.
[2019-02-11 22:00] VITALS: BP 99/65
[2019-02-11] MEDS: SENNA 8.6 MG TAB PO SCH ×2 (22:00→22:51)
[2019-02-11] MEDS: ATORVASTATIN 20 MG TAB PO SCH (22:50)
[2019-02-12] MEDS: MORPHINE SULFATE 4 MG/ML SYR/VIAL IV PRN (00:28)
[2019-02-12 05:00] VITALS: BP 99/57
[2019-02-12] MEDS: GABAPENTIN 300 MG CAP PO SCH ×3 (05:16→22:19)
[2019-02-12] MEDS: LEVOTHYROXINE SODIUM 100 MCG TAB PO SCH (05:16)
[2019-02-12 05:44] LABS: Basophils # (auto) 0.1 uL; Basophils % (auto) 0.6 % (0.0-2.0); Eosinophils # (auto) 0.3 uL; Eosinophils % (auto) 2.8 % (0.0-7.0); Hematocrit 30.8 % (36.0-46.0); Hemoglobin 9.8 g/dL (12.2-16.2); INR 1.08 (0.9-1.15); Lymphocytes % (auto) 21.5 % (10.0-50.0); Mean Corpuscular Volume 90.7 fL (80.0-100.0); Monocytes # (auto) 0.8 uL; Monocytes % (auto) 8.7 % (0.0-12.0); Neutrophils # (auto) 6.2 uL; Neutrophils % (auto) 66.4 % (37.0-80.0); Nucleated Red Blood Cells % 0.1 %; Red Blood Cells 3.39 10^6/uL (4.0-5.20); Red Cell Distribution Width 18.8 % (11.8-14.3); White Blood Cell 9.3 10^3/uL (4.4-10.8)
[2019-02-12 05:48] LABS: Platelet Count (auto) 813 10^3/uL (140-450)
--- NOTE | 2019-02-12 08:00 | NUR ---
Morning note patient resting in bed, eyes closed, with even and unlabored respirations, no distress noted. Fall precautions in place with bed in lowest locked position and call light within reach. BSC at bedside. Will continue to monitor q1hr & PRN.
[2019-02-12] MEDS: Ensure Enlive Strawberry 8oz Bottle PO SCH ×3 (08:30→18:21)
[2019-02-12 08:49] VITALS: BP 96/61
[2019-02-12] MEDS: predniSONE 5 MG TAB PO SCH (08:51)
[2019-02-12] MEDS: POTASSIUM CHL 20 Meq TABLET PO SCH (08:51)
[2019-02-12] MEDS: PANTOPRAZOLE 40 MG TAB PO SCH (08:52)
[2019-02-12] MEDS: ASPirin 81 mg TAB PO SCH (08:52)
[2019-02-12] MEDS: METOPROLOL TARTRATE 25 MG TAB PO SCH ×2 (08:53→22:19)
[2019-02-12] MEDS: amLODIPine BESYLATE 5 MG TAB PO SCH (08:53)
[2019-02-12] MEDS: ENOXAPARIN SOD 40 MG/0.4 ML SYRINGE SC SCH ×2 (08:55→22:20)
[2019-02-12] MEDS: NICOTINE 14 MG/24HR TOPICAL PATCH TD SCH (08:55)
--- NOTE | 2019-02-12 09:26 | NUR ---
RE: episodes of diarrhea Patient has had 2 episodes of liquid brown diarrhea in one hour. Patient states "I was up all night with diarrhea. I've gone multiple times." Notified Dr. Doran. Order received and read back to verify.
[2019-02-12] MEDS ORDERED: LOPERAMIDE HCL 2 MG CAP PO ONE (09:30)
[2019-02-12] MEDS: SILVER SULFADIAZINE 1 % TOPICAL CREAM 50GM TOP SCH ×2 (10:00→22:00)
[2019-02-12] MEDS: MUPIROCIN 2% OINT 15gm or 22gm TOP SCH ×2 (10:00→22:20)
--- NOTE | 2019-02-12 10:00 | NUR ---
RE: ordered medication Ordered medication held due to dressing change not due at this time.
--- NOTE | 2019-02-12 10:20 | NUR ---
PT placido Ballard requested to comeback later to do PT, patient had rough night and was on the BSC during visit. Addendum: 02/12/19 at 1021 by SHAAN SHETH PTT Amended: Links added.
--- NOTE | 2019-02-12 11:08 | NUR ---
MD's were at bedside - Dr. Beckwith & Dr. Kary GUZMAN discussed with the patient. This RN was at bedside.
--- NOTE | 2019-02-12 13:30 | NUR ---
PT Patient declined to be OOB or do PT during afternoon visit with c/o nausea, weakness and fatigue. Also stated she wanted to speak to her MD. Addendum: 02/12/19 at 1332 by SHAAN SHETH PTT Amended: Links added.
[2019-02-12] MEDS: LOPERAMIDE HCL 2 MG CAP PO PRN (13:52)
--- NOTE | 2019-02-12 14:59 | NUR ---
Patient ambulating with PT desk assistant Andre
[2019-02-12 15:00] VITALS: BP 101/73
--- NOTE | 2019-02-12 15:05 | NUR ---
Saul jenkins order Addendum: 02/12/19 at 1601 by Nellie Lizama RN Order received and read back to verify.
[2019-02-12 16:57] VITALS: BP 103/61
[2019-02-12] MEDS ORDERED: WARFARIN SODIUM 5 MG TAB PO ONE (17:00)
--- NOTE | 2019-02-12 17:42 | NUR ---
Called pharmacy RE: Coumadin Medication not available. Notified pharmacy. Medication to be delivered to unit per lucas Carrasco tech.
--- NOTE | 2019-02-12 18:34 | NUR ---
Paged on-call hospitalist RE: patient's c/o urinary discomfort Patient stated "The last few drops of pee kind of burnt and feels like I have a bladder infection." Addendum: 02/12/19 at 1927 by Nellie Lizama RN Updated Stevenson Rubio. Ramiro verbalized understanding. Orders received and read back to verify.
--- NOTE | 2019-02-12 19:27 | NUR ---
Closing note; care endorsed to MALLIKA Rodriguez. patient resting in bed with even and unlabored respirations, no distress noted. Fall precautions in place with call light within reach. Dressing to the BLE is clean, dry and intact. ARNAUD drain in place to the LLE. Dressing change to the LLE endorsed to MALLIKA Rodriguez.
[2019-02-12] MEDS: HYDROcodone-ACET 5/325MG TAB PO PRN (19:36)
--- NOTE | 2019-02-12 21:00 | NUR ---
Dressings to Left Lower Leg and Left Thigh changed per MD order. Pt tolerated well and did not complain of any pain during procedure.
[2019-02-12 22:00] VITALS: BP 105/66
[2019-02-12] MEDS: SENNA 8.6 MG TAB PO SCH (22:00)
[2019-02-12] MEDS: ATORVASTATIN 20 MG TAB PO SCH (22:18)
--- NOTE | 2019-02-12 22:53 | NUR ---
Urine specimen collected and sent to lab
[2019-02-12 23:12] LABS: Urine Bacteria NONE SEEN /hpf (None Seen); Urine Blood Negative /uL (Negative); Urine Specific Gravity 1.006 (1.001-1.035); Urine WBC 5 /hpf (0 - 5)
[2019-02-13] MEDS: LOPERAMIDE HCL 2 MG CAP PO PRN ×2 (00:53→04:47)
[2019-02-13] MEDS: ACETAMINOPHEN 500 MG TAB PO PRN ×2 (04:47→12:40)
[2019-02-13 05:00] VITALS: BP 108/63
[2019-02-13 05:22] LABS: INR 1.21 (0.9-1.15)
[2019-02-13] MEDS: GABAPENTIN 300 MG CAP PO SCH ×3 (06:58→21:57)
[2019-02-13] MEDS: LEVOTHYROXINE SODIUM 100 MCG TAB PO SCH (06:58)
--- NOTE | 2019-02-13 07:30 | NUR ---
Opening Shift Note Assumed care of patient, awake and alert. No S/S of distress/SOB or pain. Bed is in lowest position with 2x side rails up for safety. Call light is within reach. Instructed on POC and to call for assist PRN, will continue to monitor for changes Q1hr and PRN.
[2019-02-13] MEDS: Ensure Enlive Strawberry 8oz Bottle PO SCH ×3 (08:00→18:28)
[2019-02-13 08:49] VITALS: BP 102/52
[2019-02-13] MEDS: SILVER SULFADIAZINE 1 % TOPICAL CREAM 50GM TOP SCH ×3 (10:00→22:00)
[2019-02-13] MEDS: MUPIROCIN 2% OINT 15gm or 22gm TOP SCH ×2 (10:00→21:58)
--- NOTE | 2019-02-13 10:15 | NUR ---
Pt requesting to be seen by physical therapy before doing wound dressing change.
[2019-02-13] MEDS: NICOTINE 14 MG/24HR TOPICAL PATCH TD SCH (10:29)
[2019-02-13] MEDS: ASPirin 81 mg TAB PO SCH (10:37)
[2019-02-13] MEDS: PANTOPRAZOLE 40 MG TAB PO SCH (10:37)
[2019-02-13] MEDS: predniSONE 5 MG TAB PO SCH (10:37)
[2019-02-13] MEDS: METOPROLOL TARTRATE 25 MG TAB PO SCH ×2 (10:38→21:56)
[2019-02-13] MEDS: ENOXAPARIN SOD 40 MG/0.4 ML SYRINGE SC SCH ×2 (10:39→21:57)
[2019-02-13 12:40] VITALS: BP 99/50
[2019-02-13] MEDS ORDERED: POTASSIUM CHL 20 Meq TABLET PO ONE (13:30)
[2019-02-13] MEDS: HYDROcodone-ACET 5/325MG TAB PO PRN ×2 (14:44→18:27)
--- NOTE | 2019-02-13 14:45 | NUR ---
Patient requested pain medication prior to dressing change. Medicated per MD order and patient wanted dressing to be done at a later time.
--- NOTE | 2019-02-13 15:27 | NUR ---
Discharge planning per consult, patient has orders for a FWW, and home health for wound care, PT and ARNAUD drain management. Referrals sent to & for FWW and [facility]. Placed a follow up call to [facility], spoke with Sarahi and was advised that they have received the referral and are processing it and anticipate to delivery the FWW this evening some time hopefully between 7-8pm. Placed a follow up call to [place], spoke with Carla and was advised that they will accept this patient onto services upon discharge. Addendum: 02/13/19 at 1532 by MAMADOU VALE Amended: Links added.
--- NOTE | 2019-02-13 16:00 | NUR ---
Patient refusing dressing change. Patient stated she would like the night guard nurse to perform dressing change.
--- NOTE | 2019-02-13 16:20 | NUR ---
PT Patient refused second pt visit today, said they were going home tomorrow morning so they just wanted to skip the second visit. Addendum: 02/13/19 at 1621 by NHI BAER PTT Amended: Links added.
[2019-02-13 16:40] VITALS: BP 119/66
[2019-02-13] MEDS ORDERED: WARFARIN SODIUM 5 MG TAB PO ONE (17:00)
--- NOTE | 2019-02-13 19:15 | NUR ---
ASSUMED CARE, PT. AWAKE, NO C/O PAIN, NO SOB.
[2019-02-13] MEDS: ATORVASTATIN 20 MG TAB PO SCH (21:55)
[2019-02-13 22:00] VITALS: BP 130/69
[2019-02-14] MEDS: HYDROcodone-ACET 5/325MG TAB PO PRN ×3 (03:34→15:12)
[2019-02-14 05:00] VITALS: BP 106/60
[2019-02-14] MEDS: LEVOTHYROXINE SODIUM 100 MCG TAB PO SCH (06:08)
[2019-02-14 06:15] LABS: Basophils # (auto) 0.1 uL; Hemoglobin 9.8 g/dL (12.2-16.2); Lymphocytes # (auto) 1.7 uL; Nucleated Red Blood Cells % 0.1 %
[2019-02-14 06:21] LABS: Basophils % (auto) 0.9 % (0.0-2.0); Eosinophils # (auto) 0.2 uL; Eosinophils % (auto) 2.6 % (0.0-7.0); Hematocrit 30.6 % (36.0-46.0); Lymphocytes % (auto) 21.6 % (10.0-50.0); Mean Corpuscular Volume 90.5 fL (80.0-100.0); Monocytes # (auto) 0.8 uL; Monocytes % (auto) 10.2 % (0.0-12.0); Neutrophils # (auto) 5.1 uL; Neutrophils % (auto) 64.7 % (37.0-80.0); Red Blood Cells 3.39 10^6/uL (4.0-5.20); Red Cell Distribution Width 18.1 % (11.8-14.3); White Blood Cell 7.8 10^3/uL (4.4-10.8)
[2019-02-14 06:24] LABS: INR 1.72 (0.9-1.15)
[2019-02-14 06:37] LABS: Platelet Count (auto) 858 10^3/uL (140-450)
--- NOTE | 2019-02-14 06:38 | NUR ---
DIANE WALTERS, PT. [id number] -[id number], TO ENDORSE TO MALLIKA Vizcarra
--- NOTE | 2019-02-14 07:40 | NUR ---
Opening Note Assumed care of patient, report from Vianey TENA. Patient is A & O x4, no s/s of distress. Patient is c/o pain to the lower left ankle, this RN adjusted to the dressing and patient said she had relief. Will continue to monitor. POC discussed with patient, she states "I am ready to go home." Bed is in lowest, locked position, call light within reach, bed rails up x2. Will continue to monitor Q1h and PRN.
[2019-02-14] MEDS: Ensure Enlive Strawberry 8oz Bottle PO SCH ×3 (08:00→18:00)
[2019-02-14 08:49] VITALS: BP 116/62
[2019-02-14] MEDS: predniSONE 5 MG TAB PO SCH (10:59)
[2019-02-14] MEDS: GABAPENTIN 300 MG CAP PO SCH ×2 (10:59→21:02)
[2019-02-14] MEDS: PANTOPRAZOLE 40 MG TAB PO SCH (11:00)
[2019-02-14] MEDS: ASPirin 81 mg TAB PO SCH (11:00)
[2019-02-14] MEDS: METOPROLOL TARTRATE 25 MG TAB PO SCH ×2 (11:02→21:02)
[2019-02-14] MEDS: ENOXAPARIN SOD 40 MG/0.4 ML SYRINGE SC SCH ×2 (12:09→21:02)
[2019-02-14] MEDS: NICOTINE 14 MG/24HR TOPICAL PATCH TD SCH (12:10)
[2019-02-14] MEDS: MUPIROCIN 2% OINT 15gm or 22gm TOP SCH (12:10)
[2019-02-14] MEDS: SILVER SULFADIAZINE 1 % TOPICAL CREAM 50GM TOP SCH ×2 (12:10→21:03)
[2019-02-14 12:49] VITALS: BP 127/57
[2019-02-14] MEDS ORDERED: ATOR20TA50 PO (13:32)
[2019-02-14] MEDS ORDERED: GABA300C10 PO (13:32)
[2019-02-14] MEDS ORDERED: MET25T PO (13:32)
--- NOTE | 2019-02-14 15:04 | NUR ---
Nutrition Follow-up Notes Wt.: 43.8 kg Pt was sleeping with no family by beside. per records pt s/p repair thoracic dissection type A. pt with no distress noted currently on 2 gm na diet with ensure Enlive 1carton tid with adequate PO of > 75% x 5 per RN doc Est. Needs: 1300 kcal to 1550 kcal (30-35 kcal/kgBW), 44 gms to 57 gms pro (1.0-1.3 gms/kgBW d/t severe hypoalbuminemia). Will continue to monitor pertinent labs and reassess nutrient need prn Labs: ALB 2.4 L. rest lab wnl Skin: Jamar scale 17, mod risk incision at site of sx per RN doc GI: Pt had 2 BM today per insurance claims adjuster. PES: Increased nutrient needs rt current chronic medical condition aeb 97% IBW, BMI 18.9 kg/m2, decreased muscle mass, severe hypoalbuminemia, wound healing. Altered nutrition related lab values r/t current/chronic medical condition aeb low ALT and severe hypoalbuminemia Will continue to monitor PO intake, skin status, pertinent labs and weight trend. F/u in 3-5 days. Rec.: 1.) If Albumin continues trending down, consider Prostat 1 pkt BID. 3.) Consider daily MVI with minerals and Asc acid 500 mgs BID. 4.) Consider close supervision and feeding assistance prn during meals. 5.) Refer to CDE/RD for further nutrition educ. and weight monitoring upon discharge. 6.) Continue current plan of care.
[2019-02-14 16:38] VITALS: BP 113/54
[2019-02-14] MEDS ORDERED: WARFARIN SODIUM 5 MG TAB PO ONE (17:00)
--- NOTE | 2019-02-14 18:00 | NUR ---
Dressing to the left lower extremity changed per orders.
--- NOTE | 2019-02-14 19:05 | NUR ---
ASSUMED CARE, PT. AWAKE, RELATIVE AT BEDSIDE, NO C/O PAIN, DRESSING ON BILAT. LEGS DRY AND INTACT, NOT IN DISTRESS.
[2019-02-14] MEDS: ATORVASTATIN 20 MG TAB PO SCH (21:01)
[2019-02-14 22:00] VITALS: BP 101/60
[2019-02-15 05:00] VITALS: BP 113/58
[2019-02-15] MEDS: LEVOTHYROXINE SODIUM 100 MCG TAB PO SCH (06:03)
[2019-02-15 06:33] LABS: INR 2.6 (0.9-1.15)
--- NOTE | 2019-02-15 07:40 | NUR ---
Opening Note Assumed care of patient, she is A & O x4, no s/s of distress at this time. Patient c/o headache and lower left leg pain. POC discussed with patient. Bed is in lowest, locked position, call light within reach, bed rails up x2. Will continue to monitor Q1h and PRN. Will medicate per orders.
[2019-02-15] MEDS: Ensure Enlive Strawberry 8oz Bottle PO SCH ×2 (08:00→12:00)
[2019-02-15 08:45] VITALS: BP 108/59
[2019-02-15] MEDS: HYDROcodone-ACET 5/325MG TAB PO PRN ×2 (09:06→15:45)
[2019-02-15] MEDS: GABAPENTIN 300 MG CAP PO SCH (09:07)
[2019-02-15] MEDS: predniSONE 5 MG TAB PO SCH (09:07)
[2019-02-15] MEDS: PANTOPRAZOLE 40 MG TAB PO SCH (09:07)
[2019-02-15] MEDS: ASPirin 81 mg TAB PO SCH (09:07)
[2019-02-15] MEDS: METOPROLOL TARTRATE 25 MG TAB PO SCH (09:10)
[2019-02-15] MEDS: ENOXAPARIN SOD 40 MG/0.4 ML SYRINGE SC SCH (09:12)
[2019-02-15] MEDS: SILVER SULFADIAZINE 1 % TOPICAL CREAM 50GM TOP SCH (09:13)
[2019-02-15] MEDS: NICOTINE 14 MG/24HR TOPICAL PATCH TD SCH (09:14)
[2019-02-15] MEDS ORDERED: BACITRACIN TOP OINT 1 UD PKG TOP SCH (10:00)
--- NOTE | 2019-02-15 10:32 | NUR ---
PT Patient declined to be OOB or do PT during morning visit and stated she had a rough night. Addendum: 02/15/19 at 1032 by SHAAN SHETH PTT Amended: Links added.
[2019-02-15] MEDS ORDERED: WARF3TAB20 PO (10:42)
[2019-02-15] MEDS ORDERED: SILV1CRE82 TOP (11:39)
[2019-02-15] MEDS ORDERED: BAC09TP TOP (11:39)
[2019-02-15 13:00] VITALS: BP 114/68
[2019-02-15 13:03] VITALS: BP 108/59
--- NOTE | 2019-02-15 15:00 | NUR ---
ARNAUD drain removed As per orders, rubber tester Maldonado removed ARNAUD drain to the left lower leg, dressing placed. Noted 3ml of light brown drainage in ARNAUD prior to removal. Skin is smooth, dry, no bleeding, patient tolerated well.
[2019-02-15] MEDS ORDERED: WARFARIN SODIUM 1 MG TAB PO ONE (17:00)
[2019-02-15 17:26] VITALS: BP 128/68
--- NOTE | 2019-02-15 18:10 | NUR ---
Discharge instructions given as ordered. Encourage to follow up with PMD as instructed. All questions and concerns addressed. Patient verbalized understanding. Medication reconciliation form completed and copy given to patient. Home medications held in Pharmacy returned to patient. IV removed with catheter intact, pressure dressing applied. Telemetry unit returned to ICU. Patient taken to vehicle via wheelchair with all personal belongings, accompanied by staff and family member. No distress noted at time of departure.
== END 2019-02-15 18:10 | disposition home health service (06) | DRG 815 ==
LOC: DOU IN ICU 18:41 → TELE-WESTW 02-08 18:25
PROVIDERS: ADMIT Nurse Practitioner; ATTEND Internal Medicine
DX: D47.3 Essential (hemorrhagic) thrombocythemia (principal); E44.0 Moderate protein-calorie malnutrition; Z68.1 Body mass index [BMI] 19.9 or less, adult; H57.89 Other specified disorders of eye and adnexa; I10 Essential (primary) hypertension; E03.9 Hypothyroidism, unspecified; K21.9 Gastro-esophageal reflux disease without esophagitis; F17.200 Nicotine dependence, unspecified, uncomplicated; Z82.0 Family history of epilepsy and other diseases of the nervous system; E87.6 Hypokalemia; Z79.82 Long term (current) use of aspirin
CPT/HCPCS: 36415; 80048; 80053; 81001; 83735; 84100; 84132; 84443; 85025; 85610; 85730; 87081; 87086; 97110; 97116; 97530; G0378

== ENCOUNTER → 2019-08-01 | Outpatient (CLI) | payer OTHER ==
[~2019-08-01] MED LIST changes: -AMLO5TAB15 PO; -ASPI-404 PO; +ATOR20TA50 PO; +BAC09TP TOP; +GABA300C10 PO; +MET25T PO; +PANT40TA2 PO; +PRE1T PO; -PRE5T PO; +SILV1CRE82 TOP; +WARF3TAB20 PO
== END | disposition home or self-care (01) ==
LOC: XYW 08:06
PROVIDERS: ATTEND Physician Assistant
DX: I73.89 Other specified peripheral vascular diseases (principal); M79.662 Pain in left lower leg
CPT/HCPCS: 93925

== ENCOUNTER → 2019-10-08 | Outpatient (CLI) | payer OTHER ==
[2019-10-08 12:26] LABS: Basophils # (auto) 0.1 10 ^3/uL (0-0.2); Eosinophils # (auto) 0 10 ^3/uL (0-0.8); Monocytes # (auto) 0.4 10 ^3/uL (0-1.3)
[2019-10-08 12:27] LABS: Basophils % (auto) 0.4 % (0.0-2.0); Eosinophils % (auto) 0.1 % (0.0-7.0); Hematocrit 36.7 % (36.0-46.0); Hemoglobin 11.1 g/dL (12.2-16.2); Lymphocytes # (auto) 0.9 10 ^3/uL (0.4-5.4); Lymphocytes % (auto) 5.5 % (10.0-50.0); Mean Corpuscular Hemoglobin 22.4 pg (28.0-32.0); Mean Corpuscular Hgb Conc. 30.3 g/dL (32.0-36.0); Mean Corpuscular Volume 74.1 fL (80.0-100.0); Monocytes % (auto) 2.7 % (0.0-12.0); Neutrophils # (auto) 14.5 10 ^3/uL (1.6-8.6); Neutrophils % (auto) 91.3 % (37.0-80.0); Red Blood Cells 4.95 10^6/uL (4.0-5.20); Red Cell Distribution Width 19.5 % (11.8-14.3); White Blood Cell 15.9 10^3/uL (4.4-10.8)
[2019-10-08 12:40] LABS: INR 1.06 (0.9-1.15); Partial Thromboplastin Time 27.5 sec (23.64-32.05)
[2019-10-08 12:52] LABS: BUN/Creatinine Ratio 25.8; Calcium 8.6 mg/dL (8.5-10.1); Potassium 3.7 mmol/L (3.5-5.1)
[2019-10-08 14:08] LABS: Platelet Count (auto) 797 10^3/uL (140-450)
== END | disposition home or self-care (01) ==
LOC: LAB 12:07
PROVIDERS: ATTEND Physician Assistant
DX: Z01.818 Encounter for other preprocedural examination (principal); M21.372 Foot drop, left foot
CPT/HCPCS: 36415; 80048; 85025; 85610; 85730

== ENCOUNTER 2019-11-23 12:13 | Inpatient (IN) | payer OTHER ==
[~2019-11-23] VITALS: Ht 152.4 cm; Wt 57.2 kg
[2019-11-23] MEDS ORDERED: SODIUM CHLORIDE 0.9% 1,000 ML IV ONE (15:31)
[2019-11-23] MEDS ORDERED: SODIUM CHLORIDE 0.9% 1,000 ML IVB ONE (15:31)
[2019-11-23] MEDS ORDERED: ONDANSETRON HCL 4 MG/2 ML VIAL IV ONE (15:45)
[2019-11-23 16:25] LABS: Basophils # (auto) 0 10 ^3/uL (0-0.2); Eosinophils # (auto) 0 10 ^3/uL (0-0.8); Lymphocytes # (auto) 0.5 10 ^3/uL (0.4-5.4); Monocytes # (auto) 0.2 10 ^3/uL (0-1.3)
[2019-11-23 16:27] LABS: Basophils % (auto) 0.1 % (0.0-2.0); Hematocrit 37.2 % (36.0-46.0); Hemoglobin 11.7 g/dL (12.2-16.2); Lymphocytes % (auto) 5.2 % (10.0-50.0); Mean Corpuscular Hemoglobin 23.4 pg (28.0-32.0); Mean Corpuscular Hgb Conc. 31.5 g/dL (32.0-36.0); Mean Corpuscular Volume 74.3 fL (80.0-100.0); Monocytes % (auto) 2.3 % (0.0-12.0); Neutrophils # (auto) 8.6 10 ^3/uL (1.6-8.6); Neutrophils % (auto) 92.4 % (37.0-80.0); White Blood Cell 9.3 10^3/uL (4.4-10.8)
[2019-11-23 16:44] LABS: Albumin 2.9 g/dL (3.4-5.0); Anion Gap 9 (5-15); Blood Urea Nitrogen 10 mg/dL (7-18); Calcium 8.8 mg/dL (8.5-10.1); Carbon Dioxide 25 mmol/L (21-32); Chloride 100 mmol/L (98-107); Glucose 112 mg/dL (74-106); Potassium 3.2 mmol/L (3.5-5.1); Sodium 134 mmol/L (136-145)
[2019-11-23 16:49] LABS: Alanine Aminotransferase 14 U/L (13-56); Alkaline Phosphatase 81 U/L (45-117); Aspartate Aminotransferase 9 U/L (15-37); BUN/Creatinine Ratio 19.6; Bilirubin, Total 0.6 mg/dL (0.2-1.0); GFR African American 152 mL/min; GFR Non-African American 126 mL/min; Red Cell Distribution Width 21.9 % (11.8-14.3); Total Protein 6.5 g/dL (6.4-8.2)
[2019-11-23 16:50] LABS: Platelet Count (auto) 866 10^3/uL (140-450)
[2019-11-23] MEDS ORDERED: POTASSIUM EFFERVESENT TAB 25 MEQ PO ONE (17:15)
[2019-11-23] MEDS ORDERED: ALPRAZolam 0.5 MG TAB PO PRN (22:30)
[2019-11-23] MEDS ORDERED: DOCUSATE SOD 100 MG CAP PO PRN (22:30)
[2019-11-23] MEDS ORDERED: ONDANSETRON HCL 4 MG/2 ML VIAL IV PRN (22:30)
[2019-11-23] MEDS ORDERED: HYDROcodone-ACET 5/325MG TAB PO PRN (22:30)
[2019-11-23] MEDS ORDERED: MORPHINE SULF INJ 2 MG/ML SYRINGE 1ML IV PRN (22:30)
[2019-11-23] MEDS ORDERED: ACETAMINOPHEN 325 MG TAB PO PRN (22:30)
[2019-11-23] MEDS ORDERED: DEXTROSE (50%) 50ML SYRG IV PRN (22:30)
[2019-11-23] MEDS: SODIUM CHLORIDE 0.9% 1,000 ML IV SCH (23:54)
[2019-11-24] VITALS (7 sets, daily range): BP systolic 113–138; BP diastolic 68–91
[2019-11-24] MEDS ORDERED: AMLO5TAB15 PO (00:50)
[2019-11-24] MEDS ORDERED: HYDR-4833 PO (00:50)
[2019-11-24] MEDS: ACCU-CHEK COMFORT CURVE STRIP VI SCH ×3 (01:01→08:00)
[2019-11-24] MEDS: InsuLIN REG 1unit/0.01ml Soln (100units/ml) SC SCH ×3 (01:01→08:00)
--- NOTE | 2019-11-24 01:46 | NUR ---
THIS 73 YEAR OLD WOMAN ARRIVED THE UNIT VIA A WHEEL CHAIR FROM THE ER. SHE WAS AWAKE ALERT AND ORIENT. WAS NOT WILL TO GIVE DETAILED HISTORY SHE DENIED PAIN AND WAS ASKING TO BE LEFT ALONE TO SLEEP. HER IMMEDIATE FINGER STICK BLOOD SUGAR WAS 69. SHE WAS GIVEN SOME APPLE JUIVE WHICH SHE DRANK BEFORE FALLING ASLEEP SHE CAME WITH HER WHEELCHAIR AND CAN AMBULATE WITH IT TO THE BATHROOM WITH STANDBY ASSIST.
--- NOTE | 2019-11-24 02:08 | NUR ---
0200. AN OUTSIDE RADIOLOGY CALLED AND REQUESTED TO TALK TO THE ATTENDING PHYSICIAN OF THIS PATIENT REGARDING A CRITICAL RESULT. SHE WAS TOLD THERE A HOSPITALIST COVERING THE ATTNEDING AND HE CAN RECEIVE THE REPORT . SHE LEFT HER NAME AND NUMBER FOR THE HOSPITALIST TO CALL HER. HER NAME IS BRIANA AND HER NUMBER IS [phone]. THE HOSPITALIST HAS BEEN PAGED.
[2019-11-24] MEDS: SODIUM CHLORIDE 0.9% 1,000 ML IV SCH ×2 (02:16→18:48)
--- NOTE | 2019-11-24 06:57 | NUR ---
PATIENT SLEPT SOUNDLY. SHE IS AWAKE NOW TO ANSWER A PHONE CALL FROM .
[2019-11-24 07:00] LABS: Basophils # (auto) 0 10 ^3/uL (0-0.2); Basophils % (auto) 0.1 % (0.0-2.0); Eosinophils # (auto) 0.1 10 ^3/uL (0-0.8); Monocytes % (auto) 4.4 % (0.0-12.0)
[2019-11-24 07:03] LABS: Eosinophils % (auto) 0.6 % (0.0-7.0); Hematocrit 34.7 % (36.0-46.0); Lymphocytes # (auto) 3.5 10 ^3/uL (0.4-5.4); Lymphocytes % (auto) 23.8 % (10.0-50.0); Mean Corpuscular Hemoglobin 23.6 pg (28.0-32.0); Mean Corpuscular Hgb Conc. 31.7 g/dL (32.0-36.0); Mean Corpuscular Volume 74.4 fL (80.0-100.0); Monocytes # (auto) 0.7 10 ^3/uL (0-1.3); Neutrophils # (auto) 10.4 10 ^3/uL (1.6-8.6); Neutrophils % (auto) 71.1 % (37.0-80.0); Red Blood Cells 4.66 10^6/uL (4.0-5.20); White Blood Cell 14.7 10^3/uL (4.4-10.8)
[2019-11-24 07:25] LABS: Calcium 8.3 mg/dL (8.5-10.1); Potassium 3.5 mmol/L (3.5-5.1); Red Cell Distribution Width 22.4 % (11.8-14.3)
--- NOTE | 2019-11-24 07:25 | NUR ---
CRITICAL LAB RECEIVED CRITICAL PLT 770 FROM SHAY IN LAB. NOTIFIED
[2019-11-24 07:26] LABS: Platelet Count (auto) 770 10^3/uL (140-450)
--- NOTE | 2019-11-24 07:30 | NUR ---
Opening Shift Note Assumed care of patient, awake, alert, and oriented. No S/S of distress/SOB or pain. Bed in lowest/locked position, bed rails up x2, call light within reach. Instructed on POC and to call for assist PRN. Will continue to monitor for changes Q1hr and PRN.
[2019-11-24 07:31] LABS: BUN/Creatinine Ratio 26.7
--- NOTE | 2019-11-24 08:00 | NUR ---
ACCU CHECKS PATIENT REFUSING ACCU CHECK AT THIS TIME. PER PATIENT: SHE DOES NOT HAVE DIABETES AND DOES NOT CHECK HER BLOOD SUGARS. WILL CONTINUE TO MONITOR
--- NOTE | 2019-11-24 09:40 | NUR ---
MD ROUNDS DR SHELLEY AT BEDSIDE DISCUSSING POC WITH PATIENT. NEW ORDERS RECEIVED/WILL CARRY OUT. WILL CONTINUE TO MONITOR
[2019-11-24] MEDS: POTASSIUM CHL 20 Meq TABLET PO SCH (10:00)
[2019-11-24] MEDS: GABAPENTIN 300 MG CAP PO SCH ×2 (10:00→21:51)
[2019-11-24] MEDS: BACITRACIN TOP OINT 1 UD PKG TOP SCH (10:00)
[2019-11-24] MEDS: DULoxetine HCL 30 MG CAP PO SCH (10:00)
[2019-11-24] MEDS ORDERED: predniSONE 1 MG TAB PO SCH (10:00)
[2019-11-24] MEDS: SILVER SULFADIAZINE 1 % TOPICAL CREAM 50GM TOP SCH ×2 (10:00→21:52)
[2019-11-24] MEDS: METOPROLOL TARTRATE 25 MG TAB PO SCH ×2 (10:00→21:50)
--- NOTE | 2019-11-24 10:35 | NUR ---
REFUSAL PATIENT REFUSING BACITRACIN/SILAVDENE OINTMENTS TO LEFT LEG INCISION. PATIENT STATED "DO NOT REMOVE THAT DRESSING." WILL CONTINUE TO MONITOR
[2019-11-24] MEDS: PANTOPRAZOLE 40 MG TAB PO SCH ×2 (10:58→21:51)
[2019-11-24] MEDS: LEVOTHYROXINE SODIUM 100 MCG TAB PO SCH (10:58)
[2019-11-24] MEDS ORDERED: DOXYCYCLINE 100 MG TAB/CAP PO ONE (11:30)
--- NOTE | 2019-11-24 11:35 | NUR ---
[facility] SWAB COLLECTED AND WALKED TO LAB BY MALLIKA LOPEZ PER ORDERS
--- NOTE | 2019-11-24 13:43 | NUR ---
LAB URINE SENT TO LAB PER MD ORDERS
[2019-11-24 13:54] LABS: Urine Bacteria FEW /hpf (None Seen); Urine Blood 1+ /uL (Negative); Urine Specific Gravity 1.011 (1.001-1.035); Urine WBC 16 /hpf (0 - 5)
--- NOTE | 2019-11-24 14:25 | NUR ---
COVID SWAB COVID SWAB WALKED TO LAB
[2019-11-24 16:24] LABS: INR 1.07 (0.9-1.15)
[2019-11-24] MEDS ORDERED: WARFARIN SODIUM 2 MG TAB PO SCH (17:00)
[2019-11-24] MEDS ORDERED: predniSONE 20 MG TAB PO ONE (18:15)
[2019-11-24] MEDS: DOXYCYCLINE 100 MG TAB/CAP PO SCH (21:51)
[2019-11-24] MEDS ORDERED: ATORVASTATIN 20 MG TAB PO SCH (22:00)
[2019-11-25 05:19] VITALS: BP 137/75
[2019-11-25 05:19] LABS: Basophils # (auto) 0 10 ^3/uL (0-0.2); Basophils % (auto) 0.2 % (0.0-2.0); Eosinophils # (auto) 0 10 ^3/uL (0-0.8); Mean Corpuscular Volume 74.7 fL (80.0-100.0); Monocytes # (auto) 0.5 10 ^3/uL (0-1.3)
[2019-11-25 05:22] LABS: Eosinophils % (auto) 0.1 % (0.0-7.0); Hematocrit 36.8 % (36.0-46.0); Hemoglobin 11.7 g/dL (12.2-16.2); Lymphocytes % (auto) 8.1 % (10.0-50.0); Mean Corpuscular Hemoglobin 23.8 pg (28.0-32.0); Mean Corpuscular Hgb Conc. 31.8 g/dL (32.0-36.0); Monocytes % (auto) 4.5 % (0.0-12.0); Neutrophils # (auto) 10.7 10 ^3/uL (1.6-8.6); Neutrophils % (auto) 87.1 % (37.0-80.0); Red Blood Cells 4.92 10^6/uL (4.0-5.20); White Blood Cell 12.3 10^3/uL (4.4-10.8)
[2019-11-25 05:25] LABS: Red Cell Distribution Width 22.1 % (11.8-14.3)
[2019-11-25 05:26] LABS: Platelet Count (auto) 751 10^3/uL (140-450)
--- NOTE | 2019-11-25 05:27 | NUR ---
Notified by Lab of critical value, Platlets 751. Trending down from 770. Will notify provider.
[2019-11-25 05:33] LABS: INR 1.1 (0.9-1.15)
[2019-11-25 05:40] LABS: Albumin 2.8 g/dL (3.4-5.0); Calcium 8.5 mg/dL (8.5-10.1); Potassium 3.8 mmol/L (3.5-5.1)
[2019-11-25 05:43] LABS: BUN/Creatinine Ratio 15.4; Bilirubin, Total 0.7 mg/dL (0.2-1.0); Total Protein 6.1 g/dL (6.4-8.2)
[2019-11-25 08:20] VITALS: BP 135/77
[2019-11-25] MEDS: METOPROLOL TARTRATE 25 MG TAB PO SCH (09:46)
[2019-11-25] MEDS: POTASSIUM CHL 20 Meq TABLET PO SCH (09:47)
[2019-11-25] MEDS: LEVOTHYROXINE SODIUM 100 MCG TAB PO SCH (09:48)
[2019-11-25] MEDS: DOXYCYCLINE 100 MG TAB/CAP PO SCH (09:48)
[2019-11-25] MEDS: SILVER SULFADIAZINE 1 % TOPICAL CREAM 50GM TOP SCH (10:00)
[2019-11-25] MEDS: GABAPENTIN 300 MG CAP PO SCH (10:00)
[2019-11-25] MEDS ORDERED: predniSONE 20 MG TAB PO SCH (10:00)
[2019-11-25] MEDS: DULoxetine HCL 30 MG CAP PO SCH (10:00)
[2019-11-25] MEDS: BACITRACIN TOP OINT 1 UD PKG TOP SCH (10:00)
[2019-11-25] MEDS: PANTOPRAZOLE 40 MG TAB PO SCH (10:11)
--- NOTE | 2019-11-25 10:11 | NUR ---
Removed IV and tele-box
[2019-11-25 10:44] VITALS: BP 128/60
--- NOTE | 2019-11-25 11:30 | NUR ---
REPORT RECEIVED REPORT FROM MALLIKA PEREZ
--- NOTE | 2019-11-25 12:53 | NUR ---
DR KARSTEN SHELLEY AT BEDSIDE ASSESSING PATIENT. PATIENT STATED "SHE IS DEPRESSED BEING IN THE HOSPITAL." PATIENT STATED "SHE DOES NOT HAVE ANY INTENTIONS ON HURTING HERSELF, NO SUICIDAL PLAN, IDEATION. WANTS TO GO HOME WITH VLADIMIR, WITH ADEQUATE SUPPORT." PATIENT ALSO STATED "SHE JUST WANTS TO GET BETTER WITH HER PHYSICAL THERAPY." PER DR SHELLEY; PATIENT IS SAFE TO DISCHARGE HOME TO [facility]. NO ADDITIONAL RESOURCES NEEDED AT THIS TIME. WILL CONTINUE TO MONITOR Addendum: 11/25/19 at 1339 by CASSIDY RIGGINS RN RN "she has adequate support with Vladimir."
[2019-11-25 13:00] VITALS: BP 128/75
[2019-11-25] MEDS ORDERED: SERT50TA PO (14:18)
--- NOTE | 2019-11-25 14:33 | NUR ---
re-assessment I spoke with patient regarding SI per SW 1 Kat. Patient informed me her daughter last year this time by suicide. Patint informed me she has been depressed the closer it gets to the anniversary date. Patient informed me he is a great support to her. Patient infomred me she is not suicidal or homicidal. Patient has no plan and is able to commit to a safe discharge home with her . I informed patient of the warning signs and informed her to seek help PETER if she starts to feel overwhelmed or starts thinking of a plan and means to act out plan. Patient agreed to let her know or call for help. Patient informed me she is not on any anti-depressants. I have offered patient resources for Grief support groups and counseling, behavioral health and crisis center address and phone numbers, stages of grief, a referral for a therapist and I provided active listening and provided some therapy techniques such as journaling, talking about her feeling to a trusted friend, exercise, and music therapy. Patient wants all the above. Kat will provide patient with the resources. I spoke with Dr Preston about anti-depressant and a referral to a therapist. Dr Preston agreed and patient will be discharged home with said resources in the care of her . Addendum: 11/25/19 at 1445 by Keara CELIS Amended: Links added.
--- NOTE | 2019-11-25 14:58 | NUR ---
Assessment Patient is a 74-year-old female who is alert and oriented. Prior to admission patient lived with her Norris and functioned with assistance. Norris is patient caregiver. Per patient she has a wheelchair for home use. Advised patient there is a social service consult for home health physical therapy. Informed patient clinical information will be faxed to a contracted home health agency. Patient informed me she has been feeling depressed and has been having suicidal thoughts. Patient informed me her daughter committed suicide in 2019. Patient informed me she has been feeling depressed ever since she lost her daughter. Informed patient doctor will be notified. Informed Patient she has a right to participate in all discharge planning. Patient verbalized understanding. Dr. Preston was informed regarding patient having suicidal thoughts and SW II Keara will follow up with patient. Provided patient resources for grief support, Crisis behavioral center and 5 stages of grief. Regarding home health for physical therapy. Clinical information was reviewed and approved my patient health plan. Faxed clinical information to [facility]. Per Alesha with [facility] patient has been accepted and service to start within 24-48hrs upon d/c day. Informed MALLIKA Long. Addendum: 11/25/19 at 1501 by SANDI CELIS Amended: Links added.
--- NOTE | 2019-11-25 15:33 | NUR ---
Discharge instructions given as ordered. Encourage to follow up with PMD as instructed. All questions and concerns addressed. Patient verbalized understanding. IV removed with catheter intact, pressure dressing applied. Telemetry unit returned to ICU. Patient taken to vehicle via wheelchair with all personal belongings, accompanied by staff. No distress noted at time of departure.
== END 2019-11-25 15:40 | disposition home health service (06) | DRG 948 ==
LOC: ER 12:13 → TELE 12:14 → TELE-CENTR 23:49
PROVIDERS: ADMIT Hospitalist; ATTEND Internal Medicine
DX: R53.1 Weakness (principal); E44.0 Moderate protein-calorie malnutrition; R45.851 Suicidal ideations; F11.23 Opioid dependence with withdrawal; R06.02 Shortness of breath; E87.6 Hypokalemia; D47.3 Essential (hemorrhagic) thrombocythemia; J44.9 Chronic obstructive pulmonary disease, unspecified; M79.605 Pain in left leg; E78.5 Hyperlipidemia, unspecified; F03.90 Unspecified dementia, unspecified severity, without behavioral disturbance, psychotic disturbance, mood disturbance, and anxiety; I10 Essential (primary) hypertension; I71.9 Aortic aneurysm of unspecified site, without rupture; Z82.0 Family history of epilepsy and other diseases of the nervous system; Z87.891 Personal history of nicotine dependence; K21.9 Gastro-esophageal reflux disease without esophagitis; Z68.24 Body mass index [BMI] 24.0-24.9, adult; F32.9 Major depressive disorder, single episode, unspecified; F41.9 Anxiety disorder, unspecified
CPT/HCPCS: 36415; 70450; 71045; 71275; 80048; 80053; 80061; 81001; 82962; 83036; 83735; 84443; 84484; 85025; 85379; 85610; 85730; 87086; 87426; 93005; 93970; 96374; G0378; J2405

== ENCOUNTER → 2020-02-04 | Outpatient (CLI) | payer OTHER ==
[~2020-02-04] MED LIST changes: +AMLO5TAB15 PO; -DULO30CA2 PO; -GABA300C10 PO; +SERT50TA PO
== END | disposition home or self-care (01) ==
LOC: LAB 11:19
PROVIDERS: ATTEND Physician Assistant
DX: G57.30 Lesion of lateral popliteal nerve, unspecified lower limb (principal); F33.9 Major depressive disorder, recurrent, unspecified
CPT/HCPCS: 36415; 82565; 84520

== ENCOUNTER 2020-03-31 23:54 | Inpatient (IN) | payer OTHER ==
[~2020-03-31] VITALS: Ht 152.4 cm; Wt 44.3 kg
[2020-03-31 23:05] VITALS: BP 135/66
[2020-04-01] MEDS ORDERED: DULO20CA PO (01:01)
[2020-04-01] MEDS ORDERED: POTA10TA51 PO ×2 (01:01→01:42)
[2020-04-01] MEDS ORDERED: ASPI-231 PO (01:01)
[2020-04-01 01:17] LABS: Basophils # (auto) 0 10 ^3/uL (0-0.2); Eosinophils # (auto) 0 10 ^3/uL (0-0.8)
[2020-04-01 01:19] LABS: Basophils % (auto) 0.1 % (0.0-2.0); Hematocrit 32.5 % (36.0-46.0); Hemoglobin 10.1 g/dL (12.2-16.2); Lymphocytes # (auto) 0.7 10 ^3/uL (0.4-5.4); Lymphocytes % (auto) 4.2 % (10.0-50.0); Mean Corpuscular Hemoglobin 23.8 pg (28.0-32.0); Mean Corpuscular Hgb Conc. 31.2 g/dL (32.0-36.0); Mean Corpuscular Volume 76.4 fL (80.0-100.0); Monocytes # (auto) 0.6 10 ^3/uL (0-1.3); Monocytes % (auto) 3.9 % (0.0-12.0); Neutrophils # (auto) 14.7 10 ^3/uL (1.6-8.6); Neutrophils % (auto) 91.8 % (37.0-80.0); Platelet Count (auto) 339 10^3/uL (140-450); Red Blood Cells 4.25 10^6/uL (4.0-5.20)
[2020-04-01 01:40] LABS: Alanine Aminotransferase 31 U/L (13-56); Albumin 2.1 g/dL (3.4-5.0); Anion Gap 12 (5-15); Aspartate Aminotransferase 9 U/L (15-37); BUN/Creatinine Ratio 13.3; Blood Urea Nitrogen 8 mg/dL (7-18); Calcium 7.9 mg/dL (8.5-10.1); Carbon Dioxide 22 mmol/L (21-32); Chloride 104 mmol/L (98-107); GFR African American 126 mL/min; GFR Non-African American 104 mL/min; Glucose 63 mg/dL (74-106); Potassium 3.5 mmol/L (3.5-5.1); Red Cell Distribution Width 20.2 % (11.8-14.3); Sodium 138 mmol/L (136-145)
[2020-04-01] MEDS ORDERED: LOP2C PO (01:42)
[2020-04-01] MEDS ORDERED: AMLO5TAB15 PO (01:42)
[2020-04-01] MEDS ORDERED: LEVO100T8 PO (01:42)
[2020-04-01] MEDS ORDERED: PRED20TA2 PO (01:42)
[2020-04-01] MEDS ORDERED: ATO40T PO (01:42)
[2020-04-01] MEDS ORDERED: GABA300C10 PO (01:42)
[2020-04-01] MEDS ORDERED: PANT1INJ3 PO (01:42)
[2020-04-01 01:52] LABS: Alkaline Phosphatase 159 U/L (45-117); Bilirubin, Total 0.5 mg/dL (0.2-1.0)
[2020-04-01 02:11] LABS: Urine Bacteria NONE SEEN /hpf (None Seen); Urine Blood 2+ /uL (Negative); Urine Mucus FEW (None Seen); Urine Specific Gravity 1.008 (1.001-1.035); Urine WBC 22 /hpf (0 - 5)
[2020-04-01] MEDS ORDERED: NITROGLYCERIN 0.4 MG SL TAB SL PRN (05:30)
[2020-04-01] MEDS ORDERED: ONDANSETRON HCL 4 MG/2 ML VIAL IV PRN (05:30)
[2020-04-01] MEDS ORDERED: ALBUTEROL SULF HFA 90MCG INH 200DOSE IN PRN (05:30)
[2020-04-01] MEDS ORDERED: MORPHINE SULF INJ 2 MG/ML SYRINGE 1ML IV PRN (05:30)
[2020-04-01 06:06] LABS: Magnesium 1.7 mg/dL (1.6-2.6)
[2020-04-01 06:12] LABS: INR 1.12 (0.9-1.15); Partial Thromboplastin Time 32.5 sec (23.0-31.2)
[2020-04-01 06:15] LABS: Lactate Dehydrogenase 267 U/L (84-246)
[2020-04-01 06:22] LABS: CRP High Sensitivity > 19 mg/dL (< 0.3)
[2020-04-01] MEDS: LEVOTHYROXINE SODIUM 100 MCG TAB PO SCH (07:00)
[2020-04-01 08:00] VITALS: BP 145/74
[2020-04-01] MEDS: cefTRIAXone 1GM/50ML D5W 50 ML IV SCH (08:57)
[2020-04-01] MEDS ORDERED: ENOXAPARIN SOD 40 MG/0.4 ML SYRINGE SC SCH ×2 (10:00→22:00)
[2020-04-01] MEDS: DexAMETHasone SOD PHOS 10MG/1ML VIAL INJ IV SCH (10:40)
[2020-04-01] MEDS: AZITHROMYCIN 500MG/ 250ML 250 ML IV SCH (10:41)
[2020-04-01] MEDS: ZINC SULFATE 220mg CAP or TAB PO SCH (10:42)
[2020-04-01] MEDS: METOPROLOL TARTRATE 25 MG TAB PO SCH ×2 (10:43→22:45)
[2020-04-01] MEDS: GABAPENTIN 300 MG CAP PO SCH ×2 (10:44→22:46)
[2020-04-01] MEDS: PANTOPRAZOLE 40 MG TAB PO SCH (10:45)
[2020-04-01] MEDS: amLODIPine BESYLATE 5 MG TAB PO SCH (10:45)
[2020-04-01] MEDS: ASCORBIC ACID 1,000 MG TAB PO SCH (10:46)
[2020-04-01] MEDS: CHOLECALCIFEROL (VITD3) 2,000 UNIT CAP PO SCH (10:46)
[2020-04-01 16:16] VITALS: BP 106/58
[2020-04-01] MEDS ORDERED: IOHEXOL 350 MG/ML 100ML IJ ONE (17:46)
[2020-04-01 22:00] VITALS: BP 106/63
[2020-04-01] MEDS: ATORVASTATIN 20 MG TAB PO SCH (22:44)
[2020-04-01] MEDS: ACETAMINOPHEN 325 MG TAB PO PRN (22:45)
[2020-04-01] MEDS: TEMAZEPAM 15 MG CAP PO PRN (22:47)
[2020-04-01] MEDS: ENOXAPARIN SOD 60 MG/0.6 ML SYRINGE SC SCH (22:52)
[2020-04-02 05:53] VITALS: BP 100/60
[2020-04-02] MEDS: LEVOTHYROXINE SODIUM 100 MCG TAB PO SCH (06:07)
[2020-04-02] MEDS: ACETAMINOPHEN 325 MG TAB PO PRN ×2 (06:07→21:30)
[2020-04-02 07:29] LABS: Basophils # (auto) 0 10 ^3/uL (0-0.2); Basophils % (auto) 0.1 % (0.0-2.0); Eosinophils # (auto) 0 10 ^3/uL (0-0.8); Hematocrit 33.6 % (36.0-46.0); Hemoglobin 10.9 g/dL (12.2-16.2); Lymphocytes # (auto) 0.6 10 ^3/uL (0.4-5.4); Lymphocytes % (auto) 5.4 % (10.0-50.0); Mean Corpuscular Hemoglobin 24.4 pg (28.0-32.0); Mean Corpuscular Hgb Conc. 32.4 g/dL (32.0-36.0); Mean Corpuscular Volume 75.2 fL (80.0-100.0); Monocytes # (auto) 0.4 10 ^3/uL (0-1.3); Monocytes % (auto) 3.2 % (0.0-12.0); Neutrophils # (auto) 10.1 10 ^3/uL (1.6-8.6); Neutrophils % (auto) 91.3 % (37.0-80.0); Nucleated Red Blood Cells % 0.1 %; Platelet Count (auto) 377 10^3/uL (140-450); Red Blood Cells 4.46 10^6/uL (4.0-5.20); Red Cell Distribution Width 19.9 % (11.8-14.3)
[2020-04-02 07:38] LABS: Potassium 3.4 mmol/L (3.5-5.1)
[2020-04-02 07:50] LABS: BUN/Creatinine Ratio 32.7; Bilirubin, Total 0.5 mg/dL (0.2-1.0); Calcium 8.4 mg/dL (8.5-10.1); Total Protein 5.7 g/dL (6.4-8.2)
[2020-04-02 08:00] VITALS: BP 113/67
[2020-04-02] MEDS: cefTRIAXone 1GM/50ML D5W 50 ML IV SCH (08:40)
[2020-04-02 09:00] VITALS: BP 113/67
[2020-04-02] MEDS: DexAMETHasone SOD PHOS 10MG/1ML VIAL INJ IV SCH (09:48)
[2020-04-02] MEDS: ZINC SULFATE 220mg CAP or TAB PO SCH (09:49)
[2020-04-02] MEDS: AZITHROMYCIN 500MG/ 250ML 250 ML IV SCH (09:49)
[2020-04-02] MEDS: METOPROLOL TARTRATE 25 MG TAB PO SCH ×2 (09:50→21:32)
[2020-04-02] MEDS: GABAPENTIN 300 MG CAP PO SCH ×2 (09:50→21:29)
[2020-04-02] MEDS: PANTOPRAZOLE 40 MG TAB PO SCH (09:51)
[2020-04-02] MEDS: amLODIPine BESYLATE 5 MG TAB PO SCH (09:51)
[2020-04-02] MEDS: CHOLECALCIFEROL (VITD3) 2,000 UNIT CAP PO SCH (09:53)
[2020-04-02] MEDS: ASCORBIC ACID 1,000 MG TAB PO SCH (09:53)
[2020-04-02] MEDS: ENOXAPARIN SOD 60 MG/0.6 ML SYRINGE SC SCH ×2 (09:54→21:29)
[2020-04-02 13:00] VITALS: BP 105/61
[2020-04-02] MEDS ORDERED: LORazepam 2MG/ML-1ML VIAL IV PRN (15:00)
[2020-04-02 17:00] VITALS: BP 106/59
[2020-04-02] MEDS: ATORVASTATIN 20 MG TAB PO SCH (21:28)
[2020-04-02] MEDS: TEMAZEPAM 15 MG CAP PO PRN (21:30)
[2020-04-02 22:00] VITALS: BP 101/52
[2020-04-03] MEDS: LEVOTHYROXINE SODIUM 100 MCG TAB PO SCH (05:54)
[2020-04-03] MEDS: ACETAMINOPHEN 325 MG TAB PO PRN ×4 (06:04→22:22)
[2020-04-03 09:00] VITALS: BP 132/82
[2020-04-03] MEDS: cefTRIAXone 1GM/50ML D5W 50 ML IV SCH (10:07)
[2020-04-03] MEDS: METOPROLOL TARTRATE 25 MG TAB PO SCH ×2 (10:07→22:24)
[2020-04-03] MEDS: ENOXAPARIN SOD 60 MG/0.6 ML SYRINGE SC SCH ×2 (10:08→22:24)
[2020-04-03] MEDS: GABAPENTIN 300 MG CAP PO SCH ×2 (10:08→22:22)
[2020-04-03] MEDS: amLODIPine BESYLATE 5 MG TAB PO SCH (10:08)
[2020-04-03] MEDS: PANTOPRAZOLE 40 MG TAB PO SCH (10:08)
[2020-04-03] MEDS ORDERED: POTASSIUM CHL 20 Meq TABLET PO ONE (11:15)
[2020-04-03] MEDS ORDERED: MAGNESIUM SULFATE 1GM/100ML 100 ML IV ONE (11:15)
[2020-04-03 13:00] VITALS: BP 101/59
[2020-04-03 17:00] VITALS: BP 97/55
[2020-04-03 22:00] VITALS: BP 129/83
[2020-04-03] MEDS: ATORVASTATIN 20 MG TAB PO SCH (22:21)
[2020-04-03] MEDS: TEMAZEPAM 15 MG CAP PO PRN (22:21)
[2020-04-04 05:03] VITALS: BP 133/87
[2020-04-04 05:59] LABS: Basophils # (auto) 0 10 ^3/uL (0-0.2); Basophils % (auto) 0.1 % (0.0-2.0); Eosinophils # (auto) 0 10 ^3/uL (0-0.8); Eosinophils % (auto) 0.1 % (0.0-7.0); Monocytes # (auto) 0.5 10 ^3/uL (0-1.3); White Blood Cell 12.5 10^3/uL (4.4-10.8)
[2020-04-04 06:02] LABS: Hematocrit 34.9 % (36.0-46.0); Hemoglobin 11.1 g/dL (12.2-16.2); Lymphocytes # (auto) 2.6 10 ^3/uL (0.4-5.4); Lymphocytes % (auto) 21.1 % (10.0-50.0); Mean Corpuscular Hemoglobin 23.8 pg (28.0-32.0); Mean Corpuscular Hgb Conc. 31.8 g/dL (32.0-36.0); Monocytes % (auto) 4.1 % (0.0-12.0); Neutrophils # (auto) 9.3 10 ^3/uL (1.6-8.6); Neutrophils % (auto) 74.6 % (37.0-80.0); Nucleated Red Blood Cells % 0.1 %; Platelet Count (auto) 504 10^3/uL (140-450); Red Blood Cells 4.65 10^6/uL (4.0-5.20); Red Cell Distribution Width 19.4 % (11.8-14.3)
[2020-04-04] MEDS: ACETAMINOPHEN 325 MG TAB PO PRN (06:19)
[2020-04-04] MEDS: LEVOTHYROXINE SODIUM 100 MCG TAB PO SCH (06:19)
[2020-04-04 06:21] LABS: Potassium 3.3 mmol/L (3.5-5.1)
[2020-04-04 06:30] LABS: Albumin 2.2 g/dL (3.4-5.0); BUN/Creatinine Ratio 31.1; Bilirubin, Total 0.3 mg/dL (0.2-1.0); Calcium 8.3 mg/dL (8.5-10.1); Total Protein 5.8 g/dL (6.4-8.2)
[2020-04-04 08:00] VITALS: BP 93/46
[2020-04-04] MEDS: GABAPENTIN 300 MG CAP PO SCH ×2 (09:25→21:35)
[2020-04-04] MEDS: amLODIPine BESYLATE 5 MG TAB PO SCH (09:25)
[2020-04-04] MEDS: cefTRIAXone 1GM/50ML D5W 50 ML IV SCH (09:25)
[2020-04-04] MEDS: PANTOPRAZOLE 40 MG TAB PO SCH (09:26)
[2020-04-04] MEDS: ENOXAPARIN SOD 60 MG/0.6 ML SYRINGE SC SCH (09:26)
[2020-04-04] MEDS: METOPROLOL TARTRATE 25 MG TAB PO SCH ×2 (09:26→21:36)
[2020-04-04] MEDS ORDERED: POTASSIUM CHL 20 Meq TABLET PO ONE (10:00)
[2020-04-04] MEDS ORDERED: LOPERAMIDE HCL 2 MG CAP PO ONE (10:00)
[2020-04-04 13:00] VITALS: BP 91/47
[2020-04-04] MEDS: LOPERAMIDE HCL 2 MG CAP PO PRN ×2 (14:16→21:33)
[2020-04-04 17:00] VITALS: BP 111/62
[2020-04-04] MEDS: APIXABAN 5 MG TAB PO SCH (21:34)
[2020-04-04] MEDS: ATORVASTATIN 20 MG TAB PO SCH (21:34)
[2020-04-04 22:12] VITALS: BP 111/66
[2020-04-05] MEDS: ACETAMINOPHEN 325 MG TAB PO PRN (04:54)
[2020-04-05] MEDS: LEVOTHYROXINE SODIUM 100 MCG TAB PO SCH (06:06)
[2020-04-05] MEDS: cefTRIAXone 1GM/50ML D5W 50 ML IV SCH (09:34)
[2020-04-05] MEDS: APIXABAN 5 MG TAB PO SCH (09:34)
[2020-04-05] MEDS: GABAPENTIN 300 MG CAP PO SCH (09:35)
[2020-04-05] MEDS: METOPROLOL TARTRATE 25 MG TAB PO SCH (09:35)
[2020-04-05] MEDS: amLODIPine BESYLATE 5 MG TAB PO SCH (09:37)
[2020-04-05] MEDS: PANTOPRAZOLE 40 MG TAB PO SCH (09:37)
[2020-04-05] MEDS ORDERED: DULO60CA PO (10:58)
[2020-04-05] MEDS ORDERED: META-167 PO (10:58)
[2020-04-05] MEDS ORDERED: ALPR0.5T7 PO (10:58)
[2020-04-05] MEDS ORDERED: TIZA4CAP PO (10:58)
[2020-04-05] MEDS ORDERED: GABA600T PO (10:58)
[2020-04-05] MEDS ORDERED: APIX5TAB PO (11:03)
[2020-04-11] MEDS ORDERED: APIXABAN 5 MG TAB PO SCH (22:00)
== END 2020-04-05 16:10 | disposition home or self-care (01) | DRG 871 ==
LOC: TELE-CENTR 23:54
PROVIDERS: ADMIT Nurse Practitioner; ATTEND Family Medicine
DX: A41.9 Sepsis, unspecified organism (principal); I63.532 Cerebral infarction due to unspecified occlusion or stenosis of left posterior cerebral artery; G93.41 Metabolic encephalopathy; J18.9 Pneumonia, unspecified organism; I26.99 Other pulmonary embolism without acute cor pulmonale; I71.00 Dissection of unspecified site of aorta; N39.0 Urinary tract infection, site not specified; E44.0 Moderate protein-calorie malnutrition; Z68.1 Body mass index [BMI] 19.9 or less, adult; I31.3 Pericardial effusion (noninflammatory); I82.413 Acute embolism and thrombosis of femoral vein, bilateral; E03.9 Hypothyroidism, unspecified; E78.5 Hyperlipidemia, unspecified; I10 Essential (primary) hypertension; E87.6 Hypokalemia; F17.200 Nicotine dependence, unspecified, uncomplicated; G44.40 Drug-induced headache, not elsewhere classified, not intractable; K58.9 Irritable bowel syndrome, unspecified; Z79.890 Hormone replacement therapy; Z79.899 Other long term (current) drug therapy; Z82.0 Family history of epilepsy and other diseases of the nervous system; E78.00 Pure hypercholesterolemia, unspecified
CPT/HCPCS: 36415; 70450; 70551; 71045; 71275; 80053; 81001; 82607; 82728; 83605; 83615; 83735; 84443; 84484; 85025; 85379; 85610; 85730; 86141; 87040; 87081; 87086; 87493; 93886; 93970; G0378; J0696; J1100; J2405

== ENCOUNTER → 2020-06-08 | Outpatient (CLI) | payer OTHER ==
[~2020-06-08] MED LIST changes: -ALPR0.5T PO; +ALPR0.5T7 PO; +AMLO-489 PO; -AMLO5TAB15 PO; +APIX5TAB PO; -BAC09TP TOP; +DULO60CA PO; +GABA600T PO; -MET25T PO; +META-167 PO; -PANT40TA2 PO; -POTA-220 PO; +POTA10TA51 PO; -PRE1T PO; -SILV1CRE82 TOP; +TIZA4CAP PO; -WARF3TAB20 PO
[2020-06-08 10:25] LABS: Urine Blood 3+ /uL (Negative); Urine Specific Gravity 1.037 (1.001-1.035)
[2020-06-08 10:25] LABS: Basophils # (auto) 0 10 ^3/uL (0-0.2); Eosinophils # (auto) 0.1 10 ^3/uL (0-0.8); Hemoglobin 11.1 g/dL (12.2-16.2); Mean Corpuscular Volume 81.3 fL (80.0-100.0); Neutrophils # (auto) 9.9 10 ^3/uL (1.6-8.6); White Blood Cell 12.3 10^3/uL (4.4-10.8)
[2020-06-08 10:27] LABS: Basophils % (auto) 0.2 % (0.0-2.0); Eosinophils % (auto) 0.9 % (0.0-7.0); Hematocrit 34.1 % (36.0-46.0); Lymphocytes # (auto) 1.7 10 ^3/uL (0.4-5.4); Lymphocytes % (auto) 13.5 % (10.0-50.0); Mean Corpuscular Hemoglobin 26.4 pg (28.0-32.0); Mean Corpuscular Hgb Conc. 32.5 g/dL (32.0-36.0); Monocytes # (auto) 0.6 10 ^3/uL (0-1.3); Neutrophils % (auto) 80.4 % (37.0-80.0); Platelet Count (auto) 684 10^3/uL (140-450); Red Blood Cells 4.19 10^6/uL (4.0-5.20)
[2020-06-08 10:31] LABS: Red Cell Distribution Width 21.3 % (11.8-14.3)
[2020-06-08 10:34] LABS: INR 1.09 (0.9-1.15)
[2020-06-08 11:11] LABS: Albumin 2.6 g/dL (3.4-5.0); BUN/Creatinine Ratio 41.2; Bilirubin, Total 0.4 mg/dL (0.2-1.0); Calcium 8.7 mg/dL (8.5-10.1); Total Protein 5.8 g/dL (6.4-8.2)
== END | disposition home or self-care (01) ==
LOC: LAB 09:32
PROVIDERS: ATTEND Specialist
DX: Z01.812 Encounter for preprocedural laboratory examination (principal); H25.12 Age-related nuclear cataract, left eye; D68.9 Coagulation defect, unspecified; Z79.01 Long term (current) use of anticoagulants
CPT/HCPCS: 36415; 80053; 81003; 85025; 85610; 85730

== ENCOUNTER → 2020-06-26 | Outpatient (CLI) | payer OTHER ==
[2020-06-26 14:05] LABS: Basophils # (auto) 0 10 ^3/uL (0-0.2); Eosinophils # (auto) 0 10 ^3/uL (0-0.8); Hemoglobin 12.4 g/dL (12.2-16.2); Lymphocytes # (auto) 0.8 10 ^3/uL (0.4-5.4); Mean Corpuscular Volume 83.2 fL (80.0-100.0); Nucleated Red Blood Cells % 0.1 %
[2020-06-26 14:07] LABS: Basophils % (auto) 0.1 % (0.0-2.0); Eosinophils % (auto) 0.1 % (0.0-7.0); Lymphocytes % (auto) 5.3 % (10.0-50.0); Mean Corpuscular Hemoglobin 26.4 pg (28.0-32.0); Mean Corpuscular Hgb Conc. 31.7 g/dL (32.0-36.0); Monocytes # (auto) 0.5 10 ^3/uL (0-1.3); Monocytes % (auto) 3.3 % (0.0-12.0); Neutrophils % (auto) 91.2 % (37.0-80.0); Platelet Count (auto) 696 10^3/uL (140-450); Red Blood Cells 4.68 10^6/uL (4.0-5.20); Red Cell Distribution Width 19.9 % (11.8-14.3); White Blood Cell 15.4 10^3/uL (4.4-10.8)
[2020-06-26 14:12] LABS: Albumin 2.8 g/dL (3.4-5.0); Calcium 8.6 mg/dL (8.5-10.1); Potassium 3.2 mmol/L (3.5-5.1)
[2020-06-26 14:16] LABS: BUN/Creatinine Ratio 23.5; Bilirubin, Total 0.5 mg/dL (0.2-1.0); Total Protein 6.1 g/dL (6.4-8.2)
== END | disposition home or self-care (01) ==
LOC: LAB 13:34
PROVIDERS: ATTEND Internal Medicine
DX: J44.9 Chronic obstructive pulmonary disease, unspecified (principal)
CPT/HCPCS: 36415; 80053; 84443; 85025

== ENCOUNTER 2020-08-17 15:33 | Inpatient (IN) | payer OTHER ==
[~2020-08-17] VITALS: Ht 165.1 cm; Wt 30.1 kg
[2020-08-17] MEDS ORDERED: SODIUM CHLORIDE 0.9% 1,000 ML IV ONE ×2 (15:45→19:45)
[2020-08-17 17:19] LABS: Basophils # (auto) 0 10 ^3/uL (0-0.2); Eosinophils # (auto) 0 10 ^3/uL (0-0.8); Hemoglobin 12.7 g/dL (12.2-16.2); Lymphocytes # (auto) 0.4 10 ^3/uL (0.4-5.4); Lymphocytes % (auto) 2.8 % (10.0-50.0); Monocytes # (auto) 0.3 10 ^3/uL (0-1.3); Monocytes % (auto) 2.2 % (0.0-12.0); Neutrophils % (auto) 94.9 % (37.0-80.0)
[2020-08-17 17:21] LABS: Eosinophils % (auto) 0.1 % (0.0-7.0); Hematocrit 38.7 % (36.0-46.0); Mean Corpuscular Hemoglobin 26.7 pg (28.0-32.0); Mean Corpuscular Hgb Conc. 32.8 g/dL (32.0-36.0); Mean Corpuscular Volume 81.4 fL (80.0-100.0); Neutrophils # (auto) 12.8 10 ^3/uL (1.6-8.6); Platelet Count (auto) 553 10^3/uL (140-450); Red Blood Cells 4.75 10^6/uL (4.0-5.20); Red Cell Distribution Width 18.5 % (11.8-14.3); White Blood Cell 13.5 10^3/uL (4.4-10.8)
[2020-08-17 17:24] LABS: Albumin 2.5 g/dL (3.4-5.0); Anion Gap 7 (5-15); Blood Urea Nitrogen 16 mg/dL (7-18); Calcium 8.3 mg/dL (8.5-10.1); Carbon Dioxide 23 mmol/L (21-32); Chloride 108 mmol/L (98-107); Glucose 129 mg/dL (74-106); Sodium 138 mmol/L (136-145)
[2020-08-17 17:32] LABS: Alanine Aminotransferase 22 U/L (13-56); Alkaline Phosphatase 123 U/L (45-117); Aspartate Aminotransferase 15 U/L (15-37); BUN/Creatinine Ratio 43.2; Bilirubin, Total 1.1 mg/dL (0.2-1.0); GFR African American 220 mL/min; GFR Non-African American 181 mL/min; Total Protein 5.3 g/dL (6.4-8.2)
[2020-08-17] MEDS ORDERED: cefTRIAXone 1GM/50ML D5W 50 ML IV ONE (17:45)
[2020-08-17] MEDS ORDERED: MORPHINE SULF INJ 2 MG/ML SYRINGE 1ML IV PRN (19:45)
[2020-08-17] MEDS ORDERED: NITROGLYCERIN 0.4 MG SL TAB SL PRN (19:45)
[2020-08-17] MEDS ORDERED: MEGESTROL ACETATE 20 MG TAB PO SCH (22:00)
[2020-08-17] MEDS: ATORVASTATIN 20 MG TAB PO SCH (22:22)
[2020-08-17] MEDS: APIXABAN 5 MG TAB PO SCH (22:22)
[2020-08-18] VITALS (8 sets, daily range): BP systolic 93–146; BP diastolic 60–76
[2020-08-18] MEDS ORDERED: LEVO125T7 PO (10:04)
[2020-08-18] MEDS: levoFLOXacin 500MG 100 ML IV SCH (10:07)
[2020-08-18] MEDS: APIXABAN 5 MG TAB PO SCH ×2 (10:07→21:21)
[2020-08-18] MEDS: amLODIPine BESYLATE 5 MG TAB PO SCH (10:08)
[2020-08-18] MEDS ORDERED: CALC-440 PO (10:11)
[2020-08-18] MEDS ORDERED: PRED20TA2 PO (10:11)
[2020-08-18] MEDS ORDERED: PANT40TA2 PO (10:11)
[2020-08-18] MEDS ORDERED: LOPE-20 PO (10:11)
[2020-08-18] MEDS ORDERED: DULO60CA PO (18:34)
[2020-08-18] MEDS: SODIUM CHLORIDE 0.9% 1,000 ML IV SCH (18:38)
[2020-08-18] MEDS ORDERED: LORazepam 0.5 MG TAB PO PRN (18:45)
[2020-08-18] MEDS: MEGESTROL ACET 400MG/10ML ORAL SUSP PO SCH (20:11)
[2020-08-18] MEDS: ATORVASTATIN 20 MG TAB PO SCH (21:21)
[2020-08-18] MEDS: DULoxetine HCL 30 MG CAP PO SCH (21:21)
[2020-08-19 05:00] VITALS: BP 118/71
[2020-08-19] MEDS: DULoxetine HCL 30 MG CAP PO SCH ×3 (05:30→21:20)
[2020-08-19 06:18] LABS: Basophils # (auto) 0 10 ^3/uL (0-0.2); Basophils % (auto) 0.3 % (0.0-2.0); Eosinophils # (auto) 0.1 10 ^3/uL (0-0.8); Eosinophils % (auto) 0.4 % (0.0-7.0); Hematocrit 38.5 % (36.0-46.0); Hemoglobin 11.9 g/dL (12.2-16.2); Lymphocytes # (auto) 1.6 10 ^3/uL (0.4-5.4); Lymphocytes % (auto) 10.9 % (10.0-50.0); Mean Corpuscular Hemoglobin 26.1 pg (28.0-32.0); Mean Corpuscular Hgb Conc. 30.8 g/dL (32.0-36.0); Mean Corpuscular Volume 84.7 fL (80.0-100.0); Monocytes # (auto) 0.5 10 ^3/uL (0-1.3); Monocytes % (auto) 3.3 % (0.0-12.0); Neutrophils # (auto) 12.5 10 ^3/uL (1.6-8.6); Neutrophils % (auto) 85.1 % (37.0-80.0); Platelet Count (auto) 504 10^3/uL (140-450); Red Blood Cells 4.55 10^6/uL (4.0-5.20); Red Cell Distribution Width 18.9 % (11.8-14.3); White Blood Cell 14.7 10^3/uL (4.4-10.8)
[2020-08-19 06:42] LABS: Albumin 1.9 g/dL (3.4-5.0); Calcium 7.6 mg/dL (8.5-10.1); Magnesium 2.2 mg/dL (1.6-2.6); Potassium 3.1 mmol/L (3.5-5.1)
[2020-08-19 06:46] LABS: Bilirubin, Total 0.8 mg/dL (0.2-1.0); Total Protein 4.7 g/dL (6.4-8.2)
[2020-08-19 09:00] VITALS: BP 121/73
[2020-08-19] MEDS: levoFLOXacin 500MG 100 ML IV SCH (09:36)
[2020-08-19] MEDS: APIXABAN 5 MG TAB PO SCH ×2 (09:36→21:20)
[2020-08-19] MEDS: amLODIPine BESYLATE 5 MG TAB PO SCH (09:37)
[2020-08-19] MEDS: MEGESTROL ACET 400MG/10ML ORAL SUSP PO SCH (09:37)
[2020-08-19 11:03] LABS: Folate (Folic Acid) 10.38 ng/mL (5.38-24)
[2020-08-19 11:50] LABS: Urine Bacteria NONE SEEN /hpf (None Seen); Urine Blood Negative /uL (Negative); Urine Mucus FEW (None Seen); Urine Specific Gravity 1.008 (1.001-1.035); Urine WBC 1 /hpf (0 - 5)
[2020-08-19 12:43] VITALS: BP 119/77
[2020-08-19] MEDS: SODIUM CHLORIDE 0.9% 1,000 ML IV SCH (13:00)
[2020-08-19] MEDS ORDERED: CYANOCOBALAMIN (B-12) 1000 MCG/1 ML VIAL SUBCUT ONE (13:30)
[2020-08-19] MEDS ORDERED: POTASSIUM CHL 20 Meq TABLET PO ONE (13:30)
[2020-08-19] MEDS ORDERED: POTASSIUM EFFERVESENT TAB 25 MEQ PO ONE (13:45)
[2020-08-19 16:46] VITALS: BP 95/59
[2020-08-19] MEDS: Ensure Enlive Strawberry 8oz Bottle PO SCH (18:02)
[2020-08-19] MEDS: ATORVASTATIN 20 MG TAB PO SCH (21:20)
[2020-08-19 22:00] VITALS: BP 93/41
[2020-08-20 05:00] VITALS: BP 104/66
[2020-08-20] MEDS: DULoxetine HCL 30 MG CAP PO SCH ×3 (05:58→22:19)
[2020-08-20 06:48] LABS: Eosinophils # (auto) 0.1 10 ^3/uL (0-0.8); Eosinophils % (auto) 0.4 % (0.0-7.0); Lymphocytes # (auto) 1.4 10 ^3/uL (0.4-5.4); Mean Corpuscular Hemoglobin 26.9 pg (28.0-32.0); Mean Corpuscular Hgb Conc. 33.2 g/dL (32.0-36.0); Monocytes # (auto) 0.5 10 ^3/uL (0-1.3)
[2020-08-20 06:51] LABS: Basophils # (auto) 0.1 10 ^3/uL (0-0.2); Basophils % (auto) 0.5 % (0.0-2.0); Hematocrit 35.2 % (36.0-46.0); Hemoglobin 11.7 g/dL (12.2-16.2); Lymphocytes % (auto) 9.5 % (10.0-50.0); Monocytes % (auto) 3.7 % (0.0-12.0); Neutrophils # (auto) 12.3 10 ^3/uL (1.6-8.6); Neutrophils % (auto) 85.9 % (37.0-80.0); Platelet Count (auto) 469 10^3/uL (140-450); Red Blood Cells 4.35 10^6/uL (4.0-5.20); Red Cell Distribution Width 19.1 % (11.8-14.3); White Blood Cell 14.3 10^3/uL (4.4-10.8)
[2020-08-20 06:53] LABS: Potassium 3.2 mmol/L (3.5-5.1)
[2020-08-20 06:55] LABS: INR 1.38 (0.9-1.15)
[2020-08-20 06:57] LABS: Magnesium 1.9 mg/dL (1.6-2.6)
[2020-08-20 08:00] VITALS: BP 104/66
[2020-08-20 09:00] VITALS: BP 109/65
[2020-08-20] MEDS ORDERED: POTASSIUM CHL 20 Meq TABLET PO ONE (09:15)
[2020-08-20] MEDS ORDERED: MAGNESIUM SULFATE 1GM/100ML 100 ML IV ONE (09:15)
[2020-08-20] MEDS: Ensure Enlive Strawberry 8oz Bottle PO SCH ×3 (10:29→18:39)
[2020-08-20] MEDS: MEGESTROL ACET 400MG/10ML ORAL SUSP PO SCH (10:30)
[2020-08-20] MEDS ORDERED: LEVOTHYROXINE SODIUM 25 MCG TAB PO ONE (10:30)
[2020-08-20] MEDS: APIXABAN 5 MG TAB PO SCH ×2 (10:30→22:18)
[2020-08-20 12:45] VITALS: BP 101/61
[2020-08-20 17:00] VITALS: BP 120/72
[2020-08-20 22:00] VITALS: BP 112/70
[2020-08-20] MEDS: ATORVASTATIN 20 MG TAB PO SCH (22:19)
[2020-08-20] MEDS: DONEPEZIL HYDROCHLORIDE 5 MG TAB PO SCH (22:20)
[2020-08-21 05:00] VITALS: BP 115/66
[2020-08-21] MEDS: DULoxetine HCL 30 MG CAP PO SCH ×3 (06:01→21:20)
[2020-08-21] MEDS: LEVOTHYROXINE SODIUM 25 MCG TAB PO SCH (06:02)
[2020-08-21 08:09] LABS: Basophils # (auto) 0.1 10 ^3/uL (0-0.2); Basophils % (auto) 0.6 % (0.0-2.0); Eosinophils # (auto) 0.1 10 ^3/uL (0-0.8); Lymphocytes # (auto) 1.4 10 ^3/uL (0.4-5.4); Monocytes # (auto) 0.5 10 ^3/uL (0-1.3)
[2020-08-21 08:13] LABS: Eosinophils % (auto) 0.6 % (0.0-7.0); Hematocrit 35.8 % (36.0-46.0); Lymphocytes % (auto) 11.7 % (10.0-50.0); Mean Corpuscular Hemoglobin 27.1 pg (28.0-32.0); Mean Corpuscular Hgb Conc. 33.6 g/dL (32.0-36.0); Mean Corpuscular Volume 80.7 fL (80.0-100.0); Monocytes % (auto) 4.2 % (0.0-12.0); Neutrophils % (auto) 82.9 % (37.0-80.0); Platelet Count (auto) 478 10^3/uL (140-450); Red Blood Cells 4.44 10^6/uL (4.0-5.20); Red Cell Distribution Width 19.1 % (11.8-14.3)
[2020-08-21 08:19] LABS: Potassium 3.3 mmol/L (3.5-5.1)
[2020-08-21] MEDS: Ensure Enlive Strawberry 8oz Bottle PO SCH ×3 (10:24→18:52)
[2020-08-21] MEDS: APIXABAN 5 MG TAB PO SCH ×2 (10:24→21:20)
[2020-08-21] MEDS: MEGESTROL ACET 400MG/10ML ORAL SUSP PO SCH (10:25)
[2020-08-21] MEDS: CYANOCOBALAMIN 500 MCG TAB PO SCH (10:26)
[2020-08-21 13:00] VITALS: BP 115/75
[2020-08-21] MEDS: POTASSIUM CHL 20MEQ/100ML 100 ML IV SCH ×2 (14:19→18:51)
[2020-08-21 17:00] VITALS: BP 108/69
[2020-08-21] MEDS: DONEPEZIL HYDROCHLORIDE 5 MG TAB PO SCH (21:20)
[2020-08-21] MEDS: ATORVASTATIN 20 MG TAB PO SCH (21:20)
[2020-08-21 22:00] VITALS: BP 125/69
[2020-08-22 05:00] VITALS: BP 122/68
[2020-08-22] MEDS: DULoxetine HCL 30 MG CAP PO SCH ×3 (05:57→22:10)
[2020-08-22] MEDS: LEVOTHYROXINE SODIUM 25 MCG TAB PO SCH (06:19)
[2020-08-22] MEDS: Ensure Enlive Strawberry 8oz Bottle PO SCH ×4 (08:00→18:00)
[2020-08-22 09:00] VITALS: BP 119/68
[2020-08-22] MEDS: MEGESTROL ACET 400MG/10ML ORAL SUSP PO SCH (09:59)
[2020-08-22] MEDS: CYANOCOBALAMIN 500 MCG TAB PO SCH (09:59)
[2020-08-22] MEDS: APIXABAN 5 MG TAB PO SCH ×2 (09:59→22:10)
[2020-08-22 13:00] VITALS: BP 104/64
[2020-08-22 16:34] VITALS: BP 115/84
[2020-08-22] MEDS: DONEPEZIL HYDROCHLORIDE 5 MG TAB PO SCH (22:09)
[2020-08-22] MEDS: ATORVASTATIN 20 MG TAB PO SCH (22:10)
[2020-08-23 05:00] VITALS: BP 116/69
[2020-08-23] MEDS: DULoxetine HCL 30 MG CAP PO SCH ×3 (05:37→21:30)
[2020-08-23] MEDS: LEVOTHYROXINE SODIUM 25 MCG TAB PO SCH (06:21)
[2020-08-23 09:00] VITALS: BP 106/69
[2020-08-23] MEDS: CYANOCOBALAMIN 500 MCG TAB PO SCH (09:55)
[2020-08-23] MEDS: MEGESTROL ACET 400MG/10ML ORAL SUSP PO SCH (09:55)
[2020-08-23] MEDS: APIXABAN 5 MG TAB PO SCH ×2 (09:55→21:30)
[2020-08-23] MEDS: Ensure Enlive Strawberry 8oz Bottle PO SCH ×2 (12:00→18:00)
[2020-08-23 12:50] VITALS: BP 107/65
[2020-08-23] MEDS: ATORVASTATIN 20 MG TAB PO SCH (21:30)
[2020-08-23] MEDS: DONEPEZIL HYDROCHLORIDE 5 MG TAB PO SCH (21:30)
[2020-08-23 22:00] VITALS: BP 102/44
[2020-08-24 05:00] VITALS: BP 128/71
[2020-08-24] MEDS: LEVOTHYROXINE SODIUM 25 MCG TAB PO SCH (06:34)
[2020-08-24] MEDS: DULoxetine HCL 30 MG CAP PO SCH ×2 (06:34→14:14)
[2020-08-24] MEDS: Ensure Enlive Strawberry 8oz Bottle PO SCH ×2 (08:20→12:00)
[2020-08-24 09:00] VITALS: BP 118/74
[2020-08-24] MEDS: CYANOCOBALAMIN 500 MCG TAB PO SCH (09:01)
[2020-08-24] MEDS: APIXABAN 5 MG TAB PO SCH (09:01)
[2020-08-24] MEDS: MEGESTROL ACET 400MG/10ML ORAL SUSP PO SCH (09:01)
[2020-08-24] MEDS ORDERED: PANTOPRAZOLE 40 MG TAB PO ONE (11:30)
[2020-08-24] MEDS ORDERED: CYAN500T3 PO (12:04)
[2020-08-24] MEDS ORDERED: DONE5TAB80 PO (12:04)
[2020-08-25] MEDS ORDERED: PANTOPRAZOLE 40 MG TAB PO SCH (10:00)
== END 2020-08-24 14:35 | disposition hospice, home (50) | DRG 640 ==
LOC: EDBD 15:33 → ER 15:33 → TELE 19:43 → TELE-WESTW 23:27 → OBSVTOIN 08-18 10:30
PROVIDERS: ADMIT Nurse Practitioner Acute Care; ATTEND Internal Medicine
DX: R62.7 Adult failure to thrive (principal); I62.03 Nontraumatic chronic subdural hemorrhage; G93.41 Metabolic encephalopathy; R64 Cachexia; E44.0 Moderate protein-calorie malnutrition; R65.10 Systemic inflammatory response syndrome (SIRS) of non-infectious origin without acute organ dysfunction; Z68.1 Body mass index [BMI] 19.9 or less, adult; G93.1 Anoxic brain damage, not elsewhere classified; F03.90 Unspecified dementia, unspecified severity, without behavioral disturbance, psychotic disturbance, mood disturbance, and anxiety; J44.9 Chronic obstructive pulmonary disease, unspecified; E78.5 Hyperlipidemia, unspecified; E03.9 Hypothyroidism, unspecified; I10 Essential (primary) hypertension; G89.4 Chronic pain syndrome; D18.1 Lymphangioma, any site; E87.6 Hypokalemia; Z20.822 Contact with and (suspected) exposure to COVID-19; F32.9 Major depressive disorder, single episode, unspecified; F41.9 Anxiety disorder, unspecified; K21.9 Gastro-esophageal reflux disease without esophagitis; K58.0 Irritable bowel syndrome with diarrhea; M54.5 Low back pain; D72.829 Elevated white blood cell count, unspecified; G93.89 Other specified disorders of brain; E53.8 Deficiency of other specified B group vitamins; F17.200 Nicotine dependence, unspecified, uncomplicated; Z53.20 Procedure and treatment not carried out because of patient's decision for unspecified reasons; Z66 Do not resuscitate; Z74.01 Bed confinement status; Z79.01 Long term (current) use of anticoagulants; Z79.899 Other long term (current) drug therapy; Z82.0 Family history of epilepsy and other diseases of the nervous system; Z86.711 Personal history of pulmonary embolism; Z86.718 Personal history of other venous thrombosis and embolism; Z86.73 Personal history of transient ischemic attack (TIA), and cerebral infarction without residual deficits; Z87.440 Personal history of urinary (tract) infections
CPT/HCPCS: 36415; 70450; 71045; 80053; 81001; 82306; 82607; 82746; 83605; 83735; 84132; 84443; 84484; 85025; 85610; 87040; 87086; 87426; 93005; 95819; 96361; 96365; G0378; J0696; J1956; J3480